=== PATIENT | female | born 1955 | race Caucasian/White ===

== ENCOUNTER 2020-04-12 10:49 | Outpatient (CLI) | payer OTHER, SELFPAY ==
--- NOTE | 2020-04-16 12:20 | SLEEP_ITS ---
Home sleep test. DATE OF STUDY: 04/12/2020 ORDERING PHYSICIAN: Jordon Melendez M.D. REASON FOR THE STUDY: Poor quality sleep with daytime sleepiness. HISTORY: This patient is a 65-year-old female, 5 feet 6 inches tall, weighing 180 pounds for a body mass index of 29 kg/metered square. She has had years of poor quality sleep. She constantly snores and it is constantly loud enough that others complain about it. She frequently awakens from sleep feeling short of breath. She occasionally awakens at night with heartburn and belching. She frequently has trouble sleeping with a cold, frequently wakes at night gasping for breath, has trouble witnessed by others and sweats excessively at night. She occasionally notices her heart pounding or beating irregularly at night. She frequently falls asleep in the day, occasionally involuntarily, never while driving. She does not have sleep during physical effort. She rarely has loss of muscle tone with strong emotion. Occasionally, she has daytime difficulty due to excessive sleepiness. She rarely feels paralyzed on waking or falling asleep. She occasionally has nightmares, rarely remembers her dreams, occasionally has racing thoughts, occasionally feels sad or depressed. She occasionally has anxiety. She rarely has muscular tension. She frequently notices parts of her body jerking and she occasionally kicks at night. She frequently has crawly achy feelings in her legs and frequently has leg pain at night. She occasionally has morning jaw pain. She rarely grinds her teeth at night. She constantly is bothered by pain during the day, frequently awakened by pain at night. She constantly wakes up feeling stiff in the morning with sore achy muscles and pain in her neck and spine. She has dizziness, fatigue, panic, memory problems, tremors, depression, palpitations, headaches, alcohol problems, concentration difficulties, and she takes sedatives. Normal bedtime is around 09:00 p.m. until 02:00 a.m. She wakes up several times during that 5 hours. She tosses and turns. Her sleep is not refreshing. She does not feel rested on waking. PAST MEDICAL HISTORY: Depression, alcoholism, neuropathy, nasal allergies, emphysema, COPD, uses oxygen, swallowing difficulties, anemia, back surgeries, lower extremity swelling. HABITS: Tobacco everyday. Currently, also uses e-cigarettes. Alcohol is 4 or more times a week, 3 to 4 drinks per session. She drinks 24 ounces of vodka daily. She has used amphetamines, benzodiazepines and marijuana. DESCRIPTION OF THE STUDY: On the [place] Sleepiness Scale, her score is 11, elevated. This was conducted as an unattended type 3 portable home sleep test using 4-channel monitoring including respiratory effort channel, snoring channel, heart rate channel, and oxygen desaturation channel. The duration of the study was 10 hours 51 minutes. This study was scored using CMS guidelines. The apnea-hypopnea index is 11. The oxygen desaturation index is 11.1. The average saturation is 87%. Lowest saturation 68%. Baseline saturation 92%. She had 7 apneas, all obstructive. She had 112 hypopneas. She had 4192 snoring events. She desaturated 118 times and spent 69% of the study or 441 minutes below 88% saturation. Heart rate ranged from 40 to 102. The average pulse was 79. IMPRESSION: This study shows evidence of at least mild obstructive sleep apnea syndrome, G47.33. The patient normally reports 5 hours of sleep at night, but she left this on for 10 hours 51 minutes, so the apnea-hypopnea index may be artificially decreased. She has significant desaturation and spent 69% of the study below 88% saturation with an average sat of 87%, so she has baseline hypoxemia. The patient does use oxygen at home and
== END 2020-04-12 10:50 ==
LOC: ANHCSM 09-22 10:49
PROVIDERS: PCP Nurse Practitioner Family; Visit Provider Internal Medicine Critical Care Medicine
DX: G47.33 Obstructive sleep apnea (adult) (pediatric) (principal)
CPT/HCPCS: 95806

== ENCOUNTER 2020-06-11 00:44 | Outpatient (CLI) | payer OTHER, SELFPAY ==
[2020-06-12 13:40] LABS: SARS-CoV-2 RNA PCR Negative
== END 2020-06-11 00:45 | disposition home or self-care (01) ==
LOC: ANHCOVIDDT 00:44
PROVIDERS: Visit Provider Internal Medicine Critical Care Medicine
DX: Z20.828 Contact with and (suspected) exposure to other viral communicable diseases (principal)
CPT/HCPCS: 87635; C9803; U0003

== ENCOUNTER 2020-06-14 07:48 | Outpatient (CLI) | payer OTHER, SELFPAY ==
--- NOTE | 2020-06-18 03:22 | SLEEP_ITS ---
CPAP TITRATION DATE OF STUDY: 06/14/2020 ORDERING PHYSICIAN: Dr. Sharan Barahona. REASON FOR THIS STUDY: Home sleep test on 04/12/2020, showing moderate obstructive sleep apnea syndrome with an apnea-hypopnea index of 11.1. Lowest desaturation to 68% and a baseline desaturation of 92%. HISTORY: This patient is a 65-year-old female, 5 feet 6 inches tall weighing 180 pounds with a body mass index of 29 kg/metered square. On 04/12/2020, she had a portable home sleep test showing an AHI of 11.1 with desaturation to 68%, baseline was low at 92% and she spent 69% of the study below 88% saturation. Her baseline sat throughout the study was 87%. The patient returned for a CPAP titration. She does have a history of constantly snoring, which is loud, awakening from sleep feeling short of breath, awakening at night with heartburn and belching. She has trouble sleeping with a cold and frequently gasps for breath at night. She has difficulty at night witnessed by others and sweats excessively at night. She occasionally notices her heart pounding at night. She is bothered by pain during the day and frequently awakened with pain at night. PAST MEDICAL HISTORY: Depression, alcoholism, neuropathy, nasal allergies, COPD with a prior history of using oxygen, swallowing difficulties, anemia, back surgeries, and lower extremity swelling. HABITS: Daily tobacco. Also uses e-cigarettes. Alcohol, 4 or more times a week, 3-4 drinks per session. She drinks 24 ounces of vodka daily. She has used amphetamines, benzodiazepines, and marijuana. DESCRIPTION OF THE STUDY: On the [place] Sleepiness Scale, her score is 11. This was conducted as an attended multichannel study using the [employer] system with EOG, EEG, submental EMG, EKG, nasal and oral airflow using thermistors and nasal pressure sensors, chest and abdominal belts, body position data and pulse oximetry. This study was scored using CMS guidelines. The duration of this study was 411.2 minutes. Sleep time was 339.2 minutes. Sleep efficiency was 82.5%. Sleep latency was 12.4 minutes. REM latency was delayed 298 minutes. She spent 15% of the study awake after sleep onset 60 minutes. Sleep architecture showed 7.4% stage I sleep, 58.7% stage II sleep, 4.5% stage III sleep, and 14.2% stage REM. She spent 82% of the study supine, the remainder was non-supine. She had 1 dense consolidated REM episode in the last third of the night when the pressure was adequate. The overall apnea-hypopnea index was 4.4. The obstructive index was 3.4, central index 0.7. The patient had in supine REM, 3 central apneas, 1 mixed apnea for an apnea-hypopnea index of 4.2. There was no non-supine REM. The patient had 1 central apnea, 1 mixed apnea, and 19 obstructive hypopneas in supine non-REM, total #21 with an AHI of 4.7. She had no events in non-supine non-REM. The supine index was 4.6. Non-supine index was 0. Lowest desaturation was 76%. The mean saturation during the study was 84.5%. She had 24 desaturations of 4% or greater for an index of 3.5. The REM desaturation index was 4.2. The patient had 365 minutes spent below 88% saturation, 88.8% of the study. AROUSALS: One hundred arousals for an index of 14.6. The patient had 5 hypopneas for an index of 0.7, 19 snores for an index of 2.8, 38 spontaneous arousals for an index of 5.5, and 38 limb movements causing arousal for an index of 5.5. LIMB MOVEMENTS: Two hundred forty-eight isolated limb movements for an index of 43.9. She had 7 periodic limb movements for an index of 1.2. EKG: Sinus rhythm, mean heart rate 78 without arrhythmia. TITRATION: During this titration, CPAP was started at 5 cm and increased to 9 cm. At 9 cm, the patient had 56 minutes of REM, 3 hours 24 minutes o
== END 2020-06-14 07:49 | disposition home or self-care (01) ==
LOC: ANHCSM 07:49
PROVIDERS: Visit Provider Student in an Organized Health Care Education/Training Program
DX: G47.33 Obstructive sleep apnea (adult) (pediatric) (principal)
CPT/HCPCS: 95811

== ENCOUNTER 2020-08-18 10:53 | Emergency (ER) | payer OTHER, SELFPAY ==
--- NOTE | ~2020-08-18 | CT_ITS ---
EXAMINATION: CT brain wo con, CT cervical spine wo con EXAM DATE: 08/18/2020 11:57 (accession [id number]), 08/18/2020 11:56 (accession [id number]) INDICATION: Fall, head injury. TECHNIQUE: Spiral CT of the head was performed without contrast. Axial, coronal and sagittal images were reviewed. Spiral CT of the cervical spine was performed without contrast. Axial images were rev iewed. Coronal and sagittal reformatted images were also reviewed. The dose-length product (DLP) fo r this examination was 605.33 (accession [id number]), 421.72 (accession [id number]) mGy-cm. The exposure was tailored according to patient size, and iterative reconstruction (ASIR) was used as additional dose reduction technique. There is no prior study for comparison. FINDINGS: HEAD CT: There is no acute intraparenchymal hemorrhage. No evidence of intraparenchymal brain mass l esion. No evidence of acute infarction. There is mild periventricular and subcortical hypodensity, n onspecific but probably related to small vessel ischemic disease. There is ventricular prominence o ut of proportion to sulci which is suspected most likely central atrophy rather than hydrocephalus. Normal pressure hydrocephalus cannot be excluded (clinical triad ataxia/gait disturbance, dementia, u rinary incontinence). There is intracranial carotid arteriosclerosis. There is no mass effect or midline shift. There is no obstructive hydrocephalus suspected. There are no extra-axial collections . There are no acute calvarial fractures. The orbits are unremarkable. Soft tissue is unremarkable . The visualized sinuses and mastoid air cells are well aerated. CERVICAL CT: There is no evidence of acute cervical fracture. The odontoid process is intact. Pre- dens space is normal. Prevertebral soft tissue is normal. There are no soft tissue abnormalities id entified. There is no disc space widening or traumatic vertebral body subluxation suspected. Modera te cervical spondylosis. Right apical scarring. A detailed level by level evaluation of spondylosis can be added as addendum if requested. IMPRESSION: 1. No acute intracranial findings or cervical fracture. Reviewed, dictated and finalized at location A. RIFUGAL EXTRACTOR OPERATOR IMPRESSION: 1. No acute intracranial findings or cervical fracture.
--- NOTE | ~2020-08-18 | XR_ITS ---
EXAMINATION: XR shoulder RT min 2V EXAM DATE: 08/18/2020 12:04 INDICATION: Pain After Fall Yesterday, Limited range of motion. TECHNIQUE: Frontal and lateral projections of the right shoulder. Y projection. There is no prior s tudy for comparison. FINDINGS: There is moderate right glenohumeral, mild acromioclavicular primary osteoarthritis. There are no acute fractures or dislocations identified. There is no subcutaneous gas. The soft tissue is unremarkable. There are no radiopaque foreign bodies. IMPRESSION: No acute osseous findings. Reviewed, dictated and finalized at location A. DING TRADES TEACHER IMPRESSION: No acute osseous findings.
--- NOTE | ~2020-08-18 | XR_ITS ---
XR wrist LT min 3V DATE: 08/18/2020 12:05 INDICATION: Generalized left wrist pain since fall yesterday TECHNIQUE: 4 views COMPARISON: None FINDINGS: No recent fracture or dislocation is evident. Ulnar positive variant. There are cystic lares ges at the distal ulna. Radiocarpal and ulnar carpal joint space narrowing. Moderately prominent osteoarthritic change at the first carpometacarpal joint, first metacarpophalang eal and first interphalangeal joints. IMPRESSION: No recent fracture Polyarticular osteoarthritis Reviewed, dictated and finalized at location B. NG COILER
[2020-08-18 11:08] VITALS: BP 95/70; PULSE 96; RESP 20; TEMP 36.6; O2SAT 97
--- NOTE | 2020-08-18 11:45 | PC.NURSE ---
SL inserted. labs drawn. patient ambulated to restroom for urine specimen.
--- NOTE | 2020-08-18 11:50 | PC.NURSE ---
patient to CT via stretcher.
[2020-08-18 11:51] LABS: Basophils Absolute Auto 0.1 K/mm3 (0.0-0.1); Basophils Percent Auto 0.7 % (0.2-1.2); Eosinophils Absolute Auto 0.2 K/mm3 (0-0.3); Eosinophils Percent Auto 1.7 % (0-4.4); Hematocrit 43.9 % (37.0-47.0); Hemoglobin 14.7 g/dL (12.0-15.0); Immature Granulocyte Absolute 0.08 K/mm3 (0.00-0.031); Immature Granulocyte Percent A 0.9 % (0-0.5); Lymphocytes Absolute Auto 1.28 K/mm3 (0.9-3.2); Mean Corpuscular HGB Conc 33.5 g/dl (32-36); Mean Corpuscular Hemoglobin 29.6 pg (26-34); Mean Corpuscular Volume 88.3 fl (80-100); Mean Platelet Volume 8.8 fl (7.4-10.4); Monocytes Absolute Auto 0.9 K/mm3 (0.1-0.6); Monocytes Percent Auto 10.1 % (2.6-8.5); Neutrophils Absolute Auto 6.7 K/mm3 (1.3-6.7); Neutrophils Percent Auto 72.6 % (45.5-73.1); Platelet Count Result 342 k/mm3 (150-375); Red Blood Count 4.97 M/mm3 (4.2-5.4); Red Cell Distribution Width 13.4 % (11.5-14.5); White Blood Count 9.2 K/mm3 (4.5-10.0)
[2020-08-18 11:54] LABS: Add Urine Microscopic? NO; Appearance Urine Clear (Clear); Bilirubin Urine Negative (Negative); Blood Urine Negative (Negative); Color Urine Yellow (Yellow); Glucose Urine UA Negative (Negative); Ketones Urine Negative (Negative); Leukocyte Esterase Ur Negative LEU/UL (Negative); Nitrate Urine Negative (Negative); Protein Urine Negative (Negative); Specific Grav Ur 1.009 (1.001-1.035); Urobilinogen Urine Negative mg/dL (<2.0)
[2020-08-18 11:57] LABS: RBC Urine 0-2 /hpf (0-2); WBC Urine 0-3 /hpf
[2020-08-18 12:04] LABS: Anion Gap 10 mmol/L (8-16); Blood Urea Nitrogen 12 mg/dL (7-17); Carbon Dioxide 32 mmol/L (22-30); Chloride 91 mmol/L (98-107); Estimated CRCL calculation 106 ml/min; Estimated Glomerular Filt Rate > 60; Glucose 103 mg/dL (65-105); Magnesium 1.8 mg/dL (1.6-2.3); Potassium 3.5 mmol/L (3.4-5.0); Sodium 133 mmol/L (137-145)
[2020-08-18] MEDS: HYDROcodone/acetaminophen (*CRX) 7.5-325 MG TABLET 1 TAB PO (12:14)
--- NOTE | 2020-08-18 12:15 | PC.NURSE ---
patient back from CT and xray. pain medication given as ordered. sitting on stretcher. denies other needs. aware of current treatment plan and expected wait time.
--- NOTE | 2020-08-18 12:42 | ED.UPPEXIN ---
HPI - Extremity Injury (Upper) General Chief Complaint: Extremity Injury, Upper Stated Complaint: falls, lt wrist and rt arm injury Time Seen by Provider: 08/18/20 11:07 Source: patient and family Mode of arrival: ambulatory Limitations: no limitations History of Present Illness HPI narrative: Patient is a 65-year-old female who presents from home for evaluation of injuries from 2 falls fell a day ago out of bed injuring the right shoulder left wrist and then notes that yesterday her knee gave out and she also fell at that time once again injuring the right shoulder Related Data Home Medications Medication Instructions Recorded Confirmed L. acidophilus 5 mg-digestive cap PO 02/27/20 enzymes combo no.5 250 mg capsule acetaminophen 300 mg-codeine 30 mg 1 tablet PO Q8H PRN 02/27/20 tablet albuterol sulfate 90 mcg/actuation 1 inhalation INHALATION Q4H 02/27/20 aerosol inhaler amlodipine 5 mg tablet 5 mg PO DAILY 02/27/20 atorvastatin 10 mg tablet 10 mg PO DAILY 02/27/20 baclofen 20 mg tablet 20 mg PO DAILY 02/27/20 bupropion HCl 300 mg 24 hr tablet, 300 mg PO QAM 02/27/20 extended release calcium-magnesium 300 mg-300 mg 1 tablet PO TID 02/27/20 tablet clonazepam 0.5 mg tablet 0.5 mg PO DAILY 02/27/20 fenofibrate nanocrystallized 145 145 mg PO DAILY 02/27/20 mg tablet fluticasone 250 mcg-salmeterol 50 1 inhalation INHALATION BID 02/27/20 mcg/dose blistr powdr for inhalation fluticasone propionate 50 1 spray NASAL BID 02/27/20 mcg/actuation nasal spray,suspension gabapentin 400 mg capsule 400 mg PO TID 02/27/20 glucosamine 750 [id number] 1 tablet PO BID 02/27/20 no1 644 mg-C 30 mg-dima 1 mg tablet hydrochlorothiazide 12.5 mg capsule 12.5 mg PO DAILY 02/27/20 mirtazapine 30 mg tablet 30 mg PO DAILY 02/27/20 montelukast 10 mg tablet 10 mg PO DAILY 02/27/20 naproxen 500 mg tablet 500 mg PO BID 02/27/20 sertraline 100 mg tablet 100 mg PO DAILY 02/27/20 thiamine HCl (vitamin B1) 100 mg 100 mg PO DAILY 02/27/20 tablet Allergies Allergy/AdvReac Type Severity Reaction Status Date / Time No Known Allergies Allergy Verified 08/18/20 11:12 Review of Systems Review of Systems: All systems reviewed & are unremarkable except as noted in HPI and below PMFSH Past Medical History Medical History (Updated 08/18/20 @ 12:49 by Mil Marquez PA-C) Allergic rhinitis Chronic obstructive lung disease Essential hypertension Hyperlipemia Hyponatremia Lumbar radiculopathy Neuropathy Nicotine dependence Osteoarthritis Sleep apnea Spasm of back muscles Surgical History Surgical History H/O lumbosacral spine surgery H/O: hysterectomy History of surgery on arm Family History Family History Mother Chronic obstructive lung disease Father Dementia Sibling Chronic obstructive lung disease Schizophrenia Bipolar disorder Hypertension Sibling Hypertension Social History Social History Smoking status: Current every day smoker Alcohol intake: current Substance use: current Substance use type: marijuana Exam Narrative: Exam Narrative: GENERAL: Well-appearing, well-nourished, and in no acute distress. HEAD: Normocephalic, atraumatic. EYES: PERRLA and EOMI. ENT: Nares clear, no rhinorrhea or epistaxis. Mucous membranes moist. NECK: Supple. No adenopathy or masses. CHEST: Clear to auscultation. No respiratory distress. No wheezes rales or rhonchi HEART: Regular rate and rhythm. No murmur heard. Normal peripheral pulses. EXTREMITIES: Normal range of motion. No edema. Paraspinal cervical tenderness. Right rotator cuff tenderness. Left wrist tenderness SKIN: Warm, dry, no rash. NEURO: No focal deficits. Alert and oriented x3. Neurovascularly intact. Capillary refill less than 2-seco
--- NOTE | 2020-08-18 12:45 | PC.NURSE ---
provider at bedside. all test results reviewed with patient.
== END 2020-08-18 13:09 | disposition home or self-care (01) ==
PROVIDERS: Emergency Medicine Emergency Medical Services; Emergency Provider Emergency Medicine; PCP Nurse Practitioner Family
DX: S69.92XA Unspecified injury of left wrist, hand and finger(s), initial encounter (principal); S49.91XA Unspecified injury of right shoulder and upper arm, initial encounter; S16.1XXA Strain of muscle, fascia and tendon at neck level, initial encounter; J44.9 Chronic obstructive pulmonary disease, unspecified; I10 Essential (primary) hypertension; E78.5 Hyperlipidemia, unspecified; M19.90 Unspecified osteoarthritis, unspecified site; W06.XXXA Fall from bed, initial encounter
CPT/HCPCS: 36415; 70450; 72125; 73030; 73110; 80048; 81003; 83735; 85025; 99284; A9270

== ENCOUNTER 2020-09-28 15:03 | Inpatient (IN) | payer OTHER, SELFPAY ==
--- NOTE | ~2020-09-28 | XR_ITS ---
XR foot LT min 3V DATE: 09/28/2020 16:12 INDICATION: Evaluate for foreign body at lateral foot. Lateral foot injury, laceration, pain TECHNIQUE: 4 views COMPARISON: None FINDINGS: There is a fracture versus bone destruction at the lateral aspect of the head of the proxim al phalanx of the fifth digit. There is soft tissue swelling of the fifth digit. Proximal interphalan geal joint space of the fifth digit is intact. No radiopaque foreign body is detected. No other recent fracture or any dislocation or periosteal reaction or bone destruction elsewhere is n oted. Probable old fracture deformity of the neck of the fourth and fifth metatarsal bones. IMPRESSION: Fracture versus bone destruction at the lateral aspect of the head of the proximal phalan x of the fifth digit. Recommend clinical correlation as to fracture versus osteomyelitis. No radiopaque soft tissue foreign body Fifth digit soft tissue swelling. Reviewed, dictated and finalized at location A. GER LATIN IMPRESSION: Fracture versus bone destruction at the lateral aspect of the head of the proximal phalanx of the fifth digit. Recommend clinical correlation as t o fracture versus osteomyelitis. No radiopaque soft tissue foreign body Fifth digit soft tissue swelling.
--- NOTE | ~2020-09-28 | MR_ITS ---
EXAMINATION: MR foot LT wo/w con DATE: 09/29/2020 16:40 INDICATION: Osteomyelitis at the left fifth toe. TECHNIQUE: Magnetic resonance imaging (MRI) of the left fore/mid foot was performed without and with 17 mL Multihance intravenous contrast. Sequences included axial, sagittal and coronal T1-weighted FSE and T2-weighted FS FSE, axial T1-weighted FS FSE and postcontrast axial and coronal T1-weighted FS F SE. COMPARISON: Left foot radiographs dated 09/28/2020 FINDINGS: There is an abnormal contour to the head of the fifth proximal phalanx with decreased T1 signal and p rominent marrow edema and enhancement consistent with osteomyelitis and likely pathologic fracture in volving the lateral head of the fifth proximal phalanx. Small joint effusion at the fifth proximal in terphalangeal joint concerning for septic arthritis. There is additional more subtle marrow edema and enhancement at the fifth proximal phalanx without evident cortical erosion and this could be either reactive or very early osteomyelitis. Hallux valgus with mild to moderate osteoarthritis at the first metatarsophalangeal joint. There are small geographic regions of decreased T1 and increased T2 signal with enhancement oriented along the medial head of the first metatarsal. The overlying cortex appears intact on both the MR images in aimee or radiographs and there are regions of intervening normal T1 hyperintense marrow and would favor ero sions such as in the setting of gout over additional osteomyelitis. There is however a region of enha ncement in the underlying plantar fat would correlate clinically for evidence of an erosion or sinus tract which is present would elevate concern for osteomyelitis. Old healed fracture deformities with normal marrow signal at the neck of the fourth metatarsal and he ad of the fifth metatarsal. Normal marrow signal throughout the remainder of the visualized forefoot. Mild osteoarthritis at several of the tarsal metatarsal, metatarsophalangeal and interphalangeal dheeraj nts. Mild fatty atrophy of the intrinsic musculature of the foot. Visualized portions of the flexor a nd extensor tendons appear normal. IMPRESSION: 1. Septic arthritis at the fifth proximal interphalangeal joint with osteomyelitis at the head of the fifth proximal phalanx. Mild marrow signal changes at the middle phalanx without evident cortical er osion more equivocal for reactive edema versus early osteomyelitis. 2. Marrow signal changes and enhancement at the head of the first metatarsal with configuration and a bsence of evident cortical osteolysis favoring erosion such as in the setting of gout cystic change r elated to bunion formation over osteomyelitis. There is however enhancement in the underlying plantar fat pad and would correlate for evidence of ulceration and sinus tract formation which would elevate concern for additional osteomyelitis. 2. Old healed fractures at the distal fourth and fifth metatarsals. Reviewed, dictated and finalized at location A. ING ATTENDANT IMPRESSION: 1. Septic arthritis at the fifth proximal interphalangeal joint with osteomyeli tis at the head of the fifth proximal phalanx. Mild marrow signal changes at th e middle phalanx without evident cortical erosion more equivocal for reactive e libby versus early osteomyelitis. 2. Marrow signal changes and enhancement at the head of the first metatarsal wi th configuration and absence of evident cortical osteolysis favoring erosion rodrigues ch as in the setting of gout cystic change related to bunion formation over ost eomyelitis. There is however enhancement in the underlying plantar fat pad and would correlate for evidence of ulceration and sinus tract formation which woul d elevate concern for additional osteomyelitis. 2. Old healed f
[2020-09-28 15:36] VITALS: BP 127/74; PULSE 87; RESP 17; TEMP 36.3; O2SAT 95
[2020-09-28 16:55] LABS: Basophils Absolute Auto 0.1 K/mm3 (0.0-0.1); Basophils Percent Auto 0.5 % (0.2-1.2); Eosinophils Absolute Auto 0.2 K/mm3 (0-0.3); Eosinophils Percent Auto 1.5 % (0-4.4); Hematocrit 36.7 % (37.0-47.0); Hemoglobin 12.3 g/dL (12.0-15.0); Immature Granulocyte Absolute 0.13 K/mm3 (0.00-0.031); Lymphocytes Absolute Auto 1.22 K/mm3 (0.9-3.2); Lymphocytes Percent Auto 9.3 % (18.3-44.2); Mean Corpuscular HGB Conc 33.5 g/dl (32-36); Mean Corpuscular Hemoglobin 29.6 pg (26-34); Mean Corpuscular Volume 88.4 fl (80-100); Mean Platelet Volume 8.4 fl (7.4-10.4); Monocytes Absolute Auto 0.9 K/mm3 (0.1-0.6); Monocytes Percent Auto 6.8 % (2.6-8.5); Neutrophils Absolute Auto 10.6 K/mm3 (1.3-6.7); Neutrophils Percent Auto 80.9 % (45.5-73.1); Platelet Count Result 429 k/mm3 (150-375); Red Blood Count 4.15 M/mm3 (4.2-5.4); Red Cell Distribution Width 13.5 % (11.5-14.5); White Blood Count 13.1 K/mm3 (4.5-10.0)
[2020-09-28 17:06] LABS: Lactic Acid Reflex 1.1 mmol/L (0.7-2.1)
[2020-09-28 17:07] LABS: Alanine Aminotransferase 18 U/L (4-35); Albumin Level 3.7 g/dL (3.5-5.1); Alkaline Phosphatase 124 U/L (38-126); Anion Gap 9 mmol/L (8-16); Aspartate Amino Transferase 33 U/L (14-36); Bilirubin,Total 0.4 mg/dL (0.2-1.3); Blood Urea Nitrogen 8 mg/dL (7-17); Carbon Dioxide 26 mmol/L (22-30); Chloride 93 mmol/L (98-107); Estimated CRCL calculation 118 ml/min; Estimated Glomerular Filt Rate > 60; Glucose 87 mg/dL (65-105); Potassium 4.1 mmol/L (3.4-5.0); Sodium 128 mmol/L (137-145)
[2020-09-28 19:44] VITALS: BP 127/78; PULSE 85; RESP 20; TEMP 36.7; O2SAT 93
[2020-09-28] MEDS: HYDROcodone/acetaminophen (*CRX) 5-325 MG TABLET 1 TAB PO ×2 (19:55→23:48)
[2020-09-28 20:22] LABS: CRP 12.6 mg/dL (<1.0)
[2020-09-28 20:31] LABS: Erythrocyte Sedimentation Rate 55 mm/hr (0-20)
--- NOTE | 2020-09-28 20:36 | ED.GENADULT ---
HPI - General Adult General Chief complaint: Wound/Laceration Stated complaint: CUT YOUR FOOT Time Seen by Provider: 09/28/20 15:49 Source: patient Mode of arrival: ambulatory Limitations: no limitations History of Present Illness HPI narrative: Patient presents with chief complaint of laceration to the volar aspect of her left fifth metatarsal. Patient states she believes she may have stepped on something on the floor but is unsure because she did not see anything. Patient reports a history of neuropathy but denies having diabetes. Patient states that the toe has been painful for at least a week but she is not sure how long and that proceeds the laceration she sustained today. Patient denies any direct trauma to the foot recently. Patient reports 8 months ago she did drop equipment on her toe causing fractures. Patient denies fever, chills, nausea, vomiting, diarrhea or any other symptoms. Patient states she is not sure she is on blood thinners. Related Data Home Medications Medication Instructions Recorded Confirmed L. acidophilus 5 mg-digestive cap PO 02/27/20 enzymes combo no.5 250 mg capsule acetaminophen 300 mg-codeine 30 mg 1 tablet PO Q8H PRN 02/27/20 tablet albuterol sulfate 90 mcg/actuation 1 inhalation INHALATION Q4H 02/27/20 aerosol inhaler amlodipine 5 mg tablet 5 mg PO DAILY 02/27/20 atorvastatin 10 mg tablet 10 mg PO DAILY 02/27/20 baclofen 20 mg tablet 20 mg PO DAILY 02/27/20 bupropion HCl 300 mg 24 hr tablet, 300 mg PO QAM 02/27/20 extended release calcium-magnesium 300 mg-300 mg 1 tablet PO TID 02/27/20 tablet clonazepam 0.5 mg tablet 0.5 mg PO DAILY 02/27/20 fenofibrate nanocrystallized 145 145 mg PO DAILY 02/27/20 mg tablet fluticasone 250 mcg-salmeterol 50 1 inhalation INHALATION BID 02/27/20 mcg/dose blistr powdr for inhalation fluticasone propionate 50 1 spray NASAL BID 02/27/20 mcg/actuation nasal spray,suspension gabapentin 400 mg capsule 400 mg PO TID 02/27/20 glucosamine 750 [id number]-zqwklltkwhi-zru 1 tablet PO BID 02/27/20 no1 644 mg-C 30 mg-dima 1 mg tablet hydrochlorothiazide 12.5 mg capsule 12.5 mg PO DAILY 02/27/20 mirtazapine 30 mg tablet 30 mg PO DAILY 02/27/20 montelukast 10 mg tablet 10 mg PO DAILY 02/27/20 naproxen 500 mg tablet 500 mg PO BID 02/27/20 sertraline 100 mg tablet 100 mg PO DAILY 02/27/20 thiamine HCl (vitamin B1) 100 mg 100 mg PO DAILY 02/27/20 tablet Allergies Allergy/AdvReac Type Severity Reaction Status Date / Time No Known Allergies Allergy Verified 08/18/20 11:12 Review of Systems Review of Systems: Narrative: CONSTITUTIONAL: Denies fever, chills, or sweats. EYES: Denies visual changes, redness, or discharge. ENT: Denies rhinorrhea, congestion, sore throat, or otalgia. CARDIOVASCULAR: Denies chest pain, palpitations, or edema. RESPIRATORY: Denies cough or dyspnea. GASTROINTESTINAL: Denies abdominal pain, nausea, vomiting, or diarrhea. GENITOURINARY: Denies dysuria or hematuria. SKIN: Reports laceration. MUSCULOSKELETAL: Denies back pain, joint pain, or myalgia. NEUROLOGIC: Denies headache, numbness, dizziness, or weakness. PSYCHIATRIC: Denies anxiety or depression. [facility] Past Medical History Medical History (Updated 09/28/20 @ 20:48 by Jessica Mascorro PA-C) Allergic rhinitis Chronic obstructive lung disease Essential hypertension Hyperlipemia Hyponatremia Lumbar radiculopathy Neuropathy Nicotine dependence Osteoarthritis Sleep apnea Spasm of back muscles Surgical History Surgical History H/O lumbosacral spine surgery H/O: hysterectomy History of surgery on arm Family History Family History Mother Chronic obstructive lung disease Father Dementia Sibling Chronic obstructive lung disease Schizophrenia Bipolar disorder Hypertension Sibling Hypertension Social History Social Hist
--- NOTE | 2020-09-28 21:25 | ADMGEN ---
This patient, Dotty Guevara, was admitted to [facility]. Patient/family oriented to hospital policies and general routines including ID bracelet, bed and alarms, visiting hours, pain management, procedures, bathroom and other care routines, personal items, smoking policy, room service/diet, and visiting hours. Information on how to activate the Rapid Response Team has been discussed. Patient/Family are encouraged to report perceived risks to care and to ask questions if they do not understand what they are told or what they should do.
[2020-09-28 21:30] VITALS: BMI 27.8
--- NOTE | 2020-09-28 21:51 | PCRCNOTE ---
Patient declines to wear hospital CPAP unit during stay. RN aware.
[2020-09-28 22:00] VITALS: BP 125/75; PULSE 82; RESP 18; TEMP 36.3; O2SAT 94
--- NOTE | 2020-09-28 22:15 | PM.IMHP ---
H&P: HPI History of Present Illness Date/Time: 09/28/20 22:15 Chief Complaint: Left foot wound. Narrative: Dotty Guevara is a [id number]-female with spinal stenosis, peripheral neuropathy, hypertension, and COPD who presented to the emergency department earlier today from home with complaints of a left foot wound. A couple of weeks ago she noticed her left 5th toe was bleeding and she assumed that she must have stepped on something while walking in her home barefoot although she did not feel it due to neuropathy. It is been a bit sore since that time but not significantly so. The location of the injury is in a region that she cannot actively see and thus she is not sure whether not it was red or swollen. Today ?it popped open? and began to bleed again thus she came in for evaluation. An x-ray of the left 5th toe showed findings of either a fracture or bone destruction at the lateral aspect of the head of the proximal phalanx as well as soft tissue swelling. It is in this setting that she is being admitted. I inquired about any recent injuries in which she may have fractured her toe, and she remembers a time about a month ago when she dropped a heavy, glass pot lid while cooking in the kitchen. She has no active complaints and specifically denies fever, chills, sweats. No history of MRSA. She is not a diabetic. Review of Systems Review of Systems: Narrative: Twelve systems were reviewed with pertinent positives and negatives as per HPI. No sinus congestion, rhinorrhea, otalgia, or odynophagia. No known exposure to those positive for COVID-19. She denies cough and shortness of breath. No chest pain, orthopnea, or PND. She has chronic pain in her back and legs due to neuropathy from spinal stenosis. She denies ever having signs or symptoms of alcohol withdrawal. Except as documented, all other systems were reviewed and are negative. [facility] Past Medical History Medical History (Updated 09/29/20 @ 01:48 by Sisi Kat PA-C) Alcohol abuse, daily use Allergic rhinitis Chronic obstructive lung disease Chronic pain syndrome Essential hypertension Hyperlipemia Lumbar radiculopathy Obstructive sleep apnea Osteoarthritis Peripheral neuropathy Spinal stenosis Surgical History Surgical History (Updated 09/29/20 @ 01:43 by Sisi Kat PA-C) History of hysterectomy History of lumbar surgery X2. History of surgery on arm ORIF left humerus fracture. History of tonsillectomy Family History Family History Mother Chronic obstructive lung disease Father Dementia Sibling Chronic obstructive lung disease Schizophrenia Bipolar disorder Hypertension Sibling Hypertension Social History Social History (Updated 09/29/20 @ 01:44 by Sisi Kat PA-C) Social History: Surrogate decision maker: Jason Guevara, walker. Code status: Full code. Smoking packs per day: 3 Smoking cigarettes per day: 60.0 Years smoked: 15 Smoking pack-years: 45.00 Smoking status: Former smoker Smoking end date: 10/01/09 Additional smoking assessment comments: Occasionally vapes. Alcohol intake: current Drinks per week: 28 Alcohol use details: 3 to 4 glasses of wine a night. Substance use: current Substance use type: marijuana Living arrangements: alone Additional living arrangements comments: Lives in her own home in [place]. Additional occupation/education comments: Unemployed. Gender identity (if verbalized by the patient): Female Spiritual care concerns: No Meds Home Medications and Allergies Home Medications Medication Instructions Recorded Confirmed Type L. acidophilus 5 mg-digestive 1 cap PO DAILY 02/27/20 09/28/20 History enzymes combo no.5 250 mg capsule acetaminophen 300 mg-codeine 30 mg 1 tablet PO Q8H PRN 02/27/20 09/28/20 History tablet albuterol sulfate 90 mcg/actuation 1 inhalation
[2020-09-29] VITALS (7 sets, daily range): BP systolic 124–139; BP diastolic 71–78; PULSE 73–96; RESP 16–18; TEMP 36.1–36.6; O2SAT 91–94
[2020-09-29] MEDS: ALBUTEROL SULFATE (*SP) INHALER 1 PUFF (00:59)
[2020-09-29] MEDS: GABAPENTIN 400 MG CAPSULE PO ×4 (01:33→17:32)
[2020-09-29] MEDS: SODIUM CHLORIDE 0.9% IV 500 ML IV CONT (02:57)
[2020-09-29] MEDS: HYDROcodone/acetaminophen (*CRX) 5-325 MG TABLET 1 TAB PO ×4 (05:32→20:06)
[2020-09-29 05:42] LABS: Hemoglobin 11.5 g/dL (12.0-15.0); Mean Corpuscular HGB Conc 32.9 g/dl (32-36); Mean Corpuscular Hemoglobin 29.2 pg (26-34); Mean Corpuscular Volume 88.8 fl (80-100); Mean Platelet Volume 8.3 fl (7.4-10.4); Platelet Count Result 402 k/mm3 (150-375); Red Blood Count 3.94 M/mm3 (4.2-5.4); Red Cell Distribution Width 13.3 % (11.5-14.5); White Blood Count 10.4 K/mm3 (4.5-10.0)
[2020-09-29 05:56] LABS: Anion Gap 5 mmol/L (8-16); Blood Urea Nitrogen 9 mg/dL (7-17); Calcium 8.7 mg/dL (8.4-10.2); Carbon Dioxide 30 mmol/L (22-30); Chloride 95 mmol/L (98-107); Estimated CRCL calculation 132 ml/min; Estimated Glomerular Filt Rate > 60; Glucose 96 mg/dL (65-105); Magnesium 1.9 mg/dL (1.6-2.3); Sodium 130 mmol/L (137-145)
[2020-09-29] MEDS: amLODIPine BESYLATE 5 MG TABLET PO (08:18)
[2020-09-29] MEDS: FLUTICASONE PROPIONATE 0.05% NA SPR 16 GM BTL (*BKC) 1 SPRAY NASAL ×2 (08:18→17:32)
[2020-09-29] MEDS: MONTELUKAST SODIUM 10 MG TABLET PO (08:19)
[2020-09-29] MEDS: SERTRALINE HCL 50 MG TABLET 100 MG PO (08:19)
[2020-09-29] MEDS: THIAMINE HCL 100 MG TABLET PO (08:19)
[2020-09-29] MEDS: FENOFIBRATE NANOCRYSTALLIZED 145 MG TABLET PO (08:19)
[2020-09-29] MEDS: BACLOFEN 10 MG TABLET 20 MG PO ×2 (08:19→22:06)
[2020-09-29] MEDS: ATORVASTATIN 10 MG TABLET PO (08:19)
[2020-09-29] MEDS: buPROPion HCL XL (24 HR) 150 MG TABCR 300 MG PO (08:19)
[2020-09-29] MEDS: MIRTAZAPINE 30 MG TABLET PO (08:19)
[2020-09-29] MEDS: clonazePAM (*CRX) 0.5 MG TABLET PO (08:20)
[2020-09-29] MEDS: FLUTICASONE/SALMETEROL 115-21 MCG INHALER 1 PUFF 2 PUFF INHALATION (09:30)
[2020-09-29] MEDS: CALCIUM CARBONATE (OSCAL) 250 MG TABLET PO ×2 (12:05→17:32)
[2020-09-29] MEDS: MAGNESIUM OXIDE 400 MG TABLET PO ×2 (12:05→17:32)
--- NOTE | 2020-09-29 13:43 | PM.CNOR ---
Assessment and Plan Assessment and plan (1) Osteomyelitis: Qualifiers: Laterality: left Osteomyelitis location: foot Osteomyelitis type: other acute Qualified Code(s): M86.172 - Other acute osteomyelitis, left ankle and foot Code(s): M86.9 - Osteomyelitis, unspecified Status: Acute Assessment and Plan: New patient evaluation for chief complaint left small toe ulceration. History, physical exam and radiographs reviewed with the patient. Patient unsure of when problem began. Noticed drainage and bleeding several days ago. Worse yesterday. Radiographs show destructive changes of the small toe proximal interphalangeal joint consistent with osteomyelitis. Discussed the condition, nature, etiology and course of natural history with the patient. Treatment options including surgical and nonoperative treatment were reviewed. Risks and benefits of each as well as alternatives reviewed. The patient's questions were answered. Conservative treatment elevation. Patient has good vascularity. Started on IV antibiotics. White count has responded. Discussed with surgery most likely will be amputation of the toe. Patient would like to preserve the toe if possible treat with antibiotics. Recommend MRI of the left forefoot with small toe to assist with decision on surgery versus antibiotics. (2) Neuropathy, peripheral, idiopathic: Code(s): G60.9 - Hereditary and idiopathic neuropathy, unspecified Status: Acute History of Present Illness HPI Consult date: 09/29/20 Requesting physician: Eric Woodruff DO Chief complaint: osteomyelitis with cellulitis Narrative: 65-year-old woman presented to emergency room yesterday with bleeding and drainage from the left foot small toe. Patient unaware of injury to the toe. Noted bleeding several days ago. Had been using a dressing with the noted increased swelling and drainage yesterday. Family encouraged her to present to the emergency room. She denies any prior problems with her toes including ulceration, infection or surgery. She does have neuropathy. Denies fevers, chills, changes any eating, no nausea or vomiting. Very little pain secondary to her neuropathy. Review of Systems Constitutional: Constitutional: Denies fever(s) Eyes: Eyes: Denies blurry vision ENT: Reports Normal hearing present Cardiovascular: Cardiovascular: Denies chest pain, Denies dyspnea and Reports other (hypertension) Respiratory: Respiratory: Denies dyspnea and Denies wheezing Gastrointestinal: Gastrointestinal: Denies abdominal pain Genitourinary: Genitourinary: Denies urinary urgency Musculoskeletal: Musculoskeletal: Reports as per HPI, Reports arthralgias (hands), Reports numbness and Reports other (lumbar arthritis/surgery) Integumentary/Breasts: Skin/Breast: Denies changing lesions and Denies sores Neurologic: Reports Normal hearing present, Denies behavioral changes, Denies confusion, Reports numbness ( Both feet) and Denies convulsions Psychiatric: Psychiatric: Denies behavioral changes, Denies confusion and Denies hallucinations Endocrine: Endocrine: Denies heat intolerance Hematologic/Lymphatic: Hematologic/Lymphatic: Denies easy bleeding Allergic/Immunologic: Allergic/Immunologic: Denies wheezing PMFSH Past Medical History Medical History Alcohol abuse, daily use Allergic rhinitis Chronic obstructive lung disease Chronic pain syndrome Essential hypertension Hyperlipemia Lumbar radiculopathy Obstructive sleep apnea Osteoarthritis Peripheral neuropathy Spinal stenosis Surgical History Surgical History History of hysterectomy History of lumbar surgery X2. History of surgery on arm ORIF left humerus fracture. History of tonsillectomy Family History Family History Mother C
--- NOTE | 2020-09-29 14:50 | PM.IMPN ---
Progress Note: A&P Assessment and Plan (1) Cellulitis of fifth toe, left: Code(s): L03.032 - Cellulitis of left toe Status: Acute Assessment and Plan: 09/29/20 14:50 Patient is 65-year-old female presented with a complaint of left 5th toe possible laceration and or trauma as patient is a poor historian states she is not sure exactly what happened but believes this she dropped heavy pot cover on her toe couple of weeks ago however pain was getting worse last couple of days and presented emergency department further evaluation x-ray of the toe showed fracture of the toe possibly destruction of the bone concerned for cellulitis patient was started on vancomycin imipenem, patient was seen by surgery team discussed with the patient conservative management versus surgery, patient has opted for conservative management with antibiotics, surgeon has ordered MRI of the toe to further evaluate and further recommendation to follow. Patient also drinks 3-4 drinks on daily basis being monitor with CIWA protocol remains clinically stable (2) Abnormal x-ray of extremity: Code(s): R93.6 - Abnormal findings on diagnostic imaging of limbs Status: Acute Assessment and Plan: Plan is above (3) Hyponatremia: Code(s): E87.1 - Hypo-osmolality and hyponatremia Status: Acute Assessment and Plan: Most likely secondary to alcohol abuse as well as patient is on SSRI will continue to monitor and further recommendation to follow (4) Obstructive sleep apnea: Code(s): G47.33 - Obstructive sleep apnea (adult) (pediatric) Status: Inactive Assessment and Plan: Will continue CPAP (5) Chronic obstructive lung disease: Code(s): J44.9 - Chronic obstructive pulmonary disease, unspecified Status: Acute Assessment and Plan: Clinically stable will continue updraft (6) Alcohol abuse, daily use: Code(s): F10.10 - Alcohol abuse, uncomplicated Status: Acute Assessment and Plan: Patient is clinically stable being monitor with CIWA protocol and low-dose of Librium (7) Chronic pain syndrome: Code(s): G89.4 - Chronic pain syndrome Status: Acute Assessment and Plan: Will continue home regimen Additional Plan She has been started on broad-spectrum antibiotics including vancomycin and imipenem for cellulitis of the right 5th toe which appears to be stemming from a laceration that occurred within the last week or so on an unknown object. X-ray that toe shows findings of fracture verses bone destruction thus will obtain an MRI for further evaluation. I have encouraged her to elevate the affected extremity. Dr. Ortega was consulted by the ED provider and his input is appreciated. Regarding her hyponatremia, her mucous membranes are a bit tachy however she reports normal oral intake. This may be stemming from her hydrochlorothiazide in addition to daily alcohol consumption of reportedly 3 to 4 glasses a night. She will receive 0.5 L of normal saline overnight with repeat labs in a.m.. Hold hydrochlorothiazide for now. No evidence of COPD exacerbation. She denies ever having signs or symptoms of alcohol withdrawal however I will initiate CIWA protocol as well as thiamine supplementation. Her home medications will be reviewed and resumed as appropriate. Subjective Date/time seen: 09/29/20 14:50 Patient is 65-year-old female presented with a complaint of left 5th toe possible laceration and or trauma as patient is a poor historian states she is not sure exactly what happened but believes this she dropped heavy pot cover on her toe couple of weeks ago however pain was getting worse last couple of days and presented emergency department further evaluation x-ray of the toe showed fracture of the toe possibly destruction of the bone concerned for cellulitis patient was started on vancomycin imipenem, patient was seen by surgery team discussed with the patient conservative
[2020-09-29] MEDS: clonazePAM (*CRX) 0.5 MG TABLET 1 MG PO (15:20)
[2020-09-29] MEDS: MENTHOL 10% / METHYL SALICYLATE 15% 57 GM TUBE 1 APPLIC TOPICAL (15:21)
[2020-09-29] MEDS: SOLOSITE WOUND GEL 85 GM TUBE 1 APPLIC TOPICAL (17:33)
[2020-09-29] MEDS: NAPROXEN 500 MG TABLET PO (19:05)
[2020-09-29] MEDS: MELOXICAM 7.5 MG TABLET PO (21:24)
[2020-09-29] MEDS: MIRTAZAPINE 15 MG TABLET 45 MG PO (21:26)
[2020-09-30] VITALS (15 sets, daily range): BP systolic 120–138; BP diastolic 68–89; PULSE 71–89; RESP 11–20; TEMP 36.4–36.8; O2SAT 93–100
[2020-09-30] MEDS: BACLOFEN 10 MG TABLET 20 MG PO ×3 (06:13→22:36)
[2020-09-30] MEDS: HYDROcodone/acetaminophen (*CRX) 5-325 MG TABLET 1 TAB PO ×4 (06:19→22:36)
[2020-09-30 06:22] LABS: Hematocrit 37.2 % (37.0-47.0); Hemoglobin 12.1 g/dL (12.0-15.0); Mean Corpuscular HGB Conc 32.5 g/dl (32-36); Mean Corpuscular Hemoglobin 28.4 pg (26-34); Mean Corpuscular Volume 87.3 fl (80-100); Mean Platelet Volume 8.4 fl (7.4-10.4); Platelet Count Result 453 k/mm3 (150-375); Red Blood Count 4.26 M/mm3 (4.2-5.4); Red Cell Distribution Width 13.7 % (11.5-14.5); White Blood Count 8.9 K/mm3 (4.5-10.0)
[2020-09-30 06:38] LABS: Anion Gap 8 mmol/L (8-16); Blood Urea Nitrogen 8 mg/dL (7-17); Calcium 9.2 mg/dL (8.4-10.2); Carbon Dioxide 29 mmol/L (22-30); Chloride 94 mmol/L (98-107); Estimated CRCL calculation 132 ml/min; Estimated Glomerular Filt Rate > 60; Glucose 108 mg/dL (65-105); Magnesium 1.9 mg/dL (1.6-2.3); Potassium 4.6 mmol/L (3.4-5.0); Sodium 131 mmol/L (137-145)
--- NOTE | 2020-09-30 07:26 | WPDHPUPDATE1 ---
History and Physical Update Update Date/Time: 09/30/20 07:26 History and Physical has been reviewed, including an updated exam of the patient. There are NO changes in the patient's condition. MRI reviewed with the patient showing osteomyelitis of the left small toe proximal phalanx. We discussed treatment options including surgical and non operative treatment. With surgery recommendation would be amputation of the toe. Patient has declined that. Secondary option would be excision of the proximal phalanx, patient has declined that. We did discuss debridement of the toe and the proximal interphalangeal joint with salvage of the toe in closure of the wound with course of intravenous antibiotics postoperatively. Non operative treatment would include long-term intravenous antibiotics with observation. Risks, benefits, and alternatives have been discussed and questions answered. Patient has consented to debridement of the toe with closure with postoperative intravenous antibiotics as indicated. We discussed the potential for spread of infection or worsening infection and further involvement of the foot or leg. We discussed possible need for surgery in the future for increased infection. Patient agrees to proceed with procedure for debridement of the toe and continued intravenous antibiotics.
[2020-09-30 07:30] LABS: Vancomycin Trough 10.4 ug/mL (10.0-20.0)
--- NOTE | 2020-09-30 10:03 | WPDANESEPPF ---
Anes - Initial Pre Proc Eval Procedure: Operation Date: 09/30/20 12:00 Proposed Procedures p LEFT SMALL TOE DEBRIDEMENT - Ian Ortega MD Date/Time: 09/30/20 10:03 Surgeon: Suleman Woodruff DO Pre Op Diagnosis: osteomyelitis with cellulitis Patient Data Age: 65 Gender: F Height: 1.73 m Weight: 83.2 kg Last Vital Signs Temp 36.4 C L 09/30/20 06:00 Pulse 79 09/30/20 08:00 Resp 19 09/30/20 08:00 BP 128/80 09/30/20 06:00 Pulse Ox 94 09/30/20 08:00 Allergies Allergy/AdvReac Type Severity Reaction Status Date / Time No Known Allergies Allergy Verified 09/30/20 10:21 Home Medications Medication Instructions Recorded Confirmed Type L. acidophilus 5 mg-digestive 1 cap PO DAILY 02/27/20 09/28/20 History enzymes combo no.5 250 mg capsule acetaminophen 300 mg-codeine 30 mg 1 tablet PO Q8H PRN 02/27/20 09/28/20 History tablet albuterol sulfate 90 mcg/actuation 1 inhalation INHALATION Q4H 02/27/20 09/28/20 History aerosol inhaler amlodipine 5 mg tablet 5 mg PO DAILY 02/27/20 09/28/20 History atorvastatin 10 mg tablet 10 mg PO DAILY 02/27/20 09/28/20 History baclofen 20 mg tablet 20 mg PO Q8H PRN 02/27/20 09/29/20 History bupropion HCl 300 mg 24 hr tablet, 300 mg PO QAM 02/27/20 09/28/20 History extended release calcium-magnesium 300 mg-300 mg 1 tablet PO TID 02/27/20 09/28/20 History tablet clonazepam 0.5 mg tablet 1 mg PO BID PRN 02/27/20 09/29/20 History fenofibrate nanocrystallized 145 145 mg PO DAILY 02/27/20 09/28/20 History mg tablet fluticasone 250 mcg-salmeterol 50 1 inhalation INHALATION BID 02/27/20 09/28/20 History mcg/dose blistr powdr for inhalation fluticasone propionate 50 1 spray NASAL BID 02/27/20 09/28/20 History mcg/actuation nasal spray,suspension gabapentin 400 mg capsule 400 mg PO TID 02/27/20 09/28/20 History glucosamine 750 [id number] 1 tablet PO BID 02/27/20 09/28/20 History no1 644 mg-C 30 mg-dima 1 mg tablet hydrochlorothiazide 12.5 mg capsule 12.5 mg PO DAILY 02/27/20 09/28/20 History montelukast 10 mg tablet 10 mg PO DAILY 02/27/20 09/28/20 History naproxen 500 mg tablet 500 mg PO BID 02/27/20 09/28/20 History sertraline 100 mg tablet 100 mg PO DAILY 02/27/20 09/28/20 History thiamine HCl (vitamin B1) 100 mg 100 mg PO DAILY 02/27/20 09/28/20 History tablet meloxicam 7.5 mg PO HS 09/29/20 09/29/20 History mirtazapine 45 mg PO HS 09/29/20 09/29/20 History Laboratory Tests 09/30/20 09/30/20 09/30/20 06:12 06:12 06:12 WBC 8.9 K/mm3 K/mm3 (4.5-10.0) RBC 4.26 M/mm3 M/mm3 (4.2-5.4) Hgb 12.1 g/dL g/dL (12.0-15.0) Hct 37.2 % % (37.0-47.0) MCV 87.3 fl fl (80-100) MCH 28.4 pg pg (26-34) MCHC 32.5 g/dl g/dl (32-36) RDW 13.7 % % (11.5-14.5) Plt Count 453 k/mm3 H k/mm3 (150-375) MPV 8.4 fl fl (7.4-10.4) Sodium 131 mmol/L L mmol/L (137-145) Potassium 4.6 mmol/L mmol/L (3.4-5.0) Chloride 94 mmol/L L mmol/L (98-107) Carbon Dioxide 29 mmol/L mmol/L (22-30) Anion Gap 8 mmol/L mmol/L (8-16) BUN 8 mg/dL mg/dL (7-17) Creatinine 0.40 mg/dL L mg/dL (0.7-1.0) Estim Creat Clear Calc 132 ml/min ml/min Estimated GFR > 60 (59 - ) Glucose 108 mg/dL H mg/dL (65-105) Calcium 9.2 mg/dL mg/dL (8.4-10.2) Magnesium 1.9 mg/dL mg/dL (1.6-2.3) Vancomycin Trough 10.4 ug/mL ug/mL (10.0-20.0) Patient hx anesthesia problems: none Family hx anesthesia problems: none PMFSH Past Medical History Medical History (Updated 09/29/20 @ 14:06 by Ian Ortega MD) Alcohol abuse, daily use Allergic rhinitis Chronic obstructive lung disease Chronic pain syndrome Essential hypertension Hyperlipemia Lumbar radiculopathy Neuropathy, peripheral, idiopathic Obstructive sl
[2020-09-30] MEDS: LACTATED RINGERS 1,000 ML 30 ML IV CONT (10:19)
--- NOTE | 2020-09-30 11:29 | WPDHPUPDATE1 ---
History and Physical Update Update Date/Time: 09/30/20 11:29 History and Physical has been reviewed, including an updated exam of the patient. There are NO changes in the patient's condition. Further discussion regarding surgical options for treatment of left foot small toe osteomyelitis. Patient has now decided that if the infection involves enough of the toe that salvage is unlikely she would like to proceed with amputation of the small toe. Discussed debridement of the toe with evaluation at the time of surgery and if the extent of the infection and debridement does not leave a viable salvageable toe we will proceed with amputation. Risks, benefits, and alternatives have been discussed and questions answered. Patient agrees to proceed with procedure with plan for debridement of left small toe possible amputation.
[2020-09-30] MEDS: BUPIVACAINE HCL 0.5% PF 30 ML VIAL INFILTRATE (12:03)
--- NOTE | 2020-09-30 13:01 | PM.PROC ---
Procedure Note - Detailed Date of procedure: 09/30/20 Pre-op diagnosis: osteomyelitis with cellulitis Post-op diagnosis: same Procedure performed: Left foot small toe excision of osteomyelitis Description of procedure: Indications: Patient is a 65-year-old woman with peripheral neuropathy who was admitted to the hospital with left small toe infection and plantar ulceration/laceration. Patient has peripheral neuropathy. She is not sure exactly cause of her wound. She presented when they noticed drainage. She did with started on intravenous antibiotics and has shown improvement in terms of white count. An MRI done yesterday shows osteomyelitis of the distal portion of the proximal phalanx and septic arthritis of the PIP joint. She presents now for operative treatment for debridement versus amputation depending on operative findings. What was done: Patient identified in the preoperative holding. Informed consent given. Operative extremity marked. Patient received intravenous antibiotics. Patient brought to the operating room where underwent general anesthetic by anesthesia team. Positioned supine on operating room table. Time-out performed confirming the patient, site of the surgery and the plan. Left foot prepped draped usual sterile surgical fashion using a Betadine prep solution. There was a 3 cm transverse laceration on the plantar aspect of the left foot small toe at the plantar flexion crease. This communicated directly with the plantar aspect of the proximal interphalangeal joint which had mild purulence. There was destruction of the articular surface of the distal portion of the proximal phalanx. Rongeur was used to remove the osteomyelitis and the portion of the proximal phalanx which was infected. This was passed off as specimen. The articular surface of the middle phalanx was removed with a rongeur as well. Soft tissue was debrided with the rongeur and 15 blade knife. Wound was thoroughly irrigated with antibiotic solution. The tourniquet was released and good capillary refill was noted in the toe. There did not appear to be any other signs of infection. Was felt that there was a very good chance at salvage of the toe and so amputation was not indicated. Closure of the wound was then performed with 2 Vicryl interrupted suture for the soft tissue and 3 O nylon interrupted suture for the skin repair. Sterile dressing applied. The patient was then woken from anesthesia, extubated and taken to the recovery room in stable condition. All sponge, needle, instrument counts were correct at the end of the case. Implants: none Anesthesia: GLMA Surgeon: Ian Ortega MD Small Arms Repairer: 1st information technology assistant Estimated blood loss (mL): 5 Tourniquet time (min): 30 Drains: No Packing: No Pathology: yes ( distal portion of the proximal phalanx left small toe) Complications: None Condition: stable Disposition: PACU Findings: septic arthritis of the left small toe proximal interphalangeal joint with changes consistent with infection of the distal most portion of the proximal phalanx. Minimal involvement of the surrounding soft tissue. 3 cm laceration on the plantar aspect of the small toe.
[2020-09-30] MEDS: amLODIPine BESYLATE 5 MG TABLET PO (14:43)
[2020-09-30] MEDS: CALCIUM CARBONATE (OSCAL) 250 MG TABLET PO ×2 (14:44→17:56)
[2020-09-30] MEDS: ATORVASTATIN 10 MG TABLET PO (14:44)
[2020-09-30] MEDS: SERTRALINE HCL 50 MG TABLET 100 MG PO (14:44)
[2020-09-30] MEDS: ACIDOPHILUS/BULGARICUS CHEWABLE TABLET 1 TABLET BY MOUTH (14:44)
[2020-09-30] MEDS: MAGNESIUM OXIDE 400 MG TABLET PO ×2 (14:44→17:56)
[2020-09-30] MEDS: GABAPENTIN 400 MG CAPSULE PO ×2 (14:44→17:56)
[2020-09-30] MEDS: FENOFIBRATE NANOCRYSTALLIZED 145 MG TABLET PO (14:45)
[2020-09-30] MEDS: buPROPion HCL XL (24 HR) 150 MG TABCR 300 MG PO (14:45)
[2020-09-30] MEDS: THIAMINE HCL 100 MG TABLET PO (14:45)
[2020-09-30] MEDS: MONTELUKAST SODIUM 10 MG TABLET PO (14:45)
[2020-09-30] MEDS: clonazePAM (*CRX) 0.5 MG TABLET 1 MG PO (14:49)
--- NOTE | 2020-09-30 15:37 | PM.IMPN ---
Progress Note: A&P Assessment and Plan (1) Cellulitis of fifth toe, left: Code(s): L03.032 - Cellulitis of left toe Status: Acute Assessment and Plan: 09/30/20 15:37 Patient is 65-year-old female presented with a complaint of left 5th toe possible laceration and or trauma as patient is a poor historian states she is not sure exactly what happened but believes this she dropped heavy pot cover on her toe couple of weeks ago however pain was getting worse last couple of days and presented emergency department further evaluation x-ray of the toe showed fracture of the toe possibly destruction of the bone concerned for cellulitis patient was started on vancomycin imipenem, patient was seen by surgery team discussed with the patient conservative management versus surgery, patient had opted for conservative management with antibiotics, surgeon has ordered MRI of the toe to further evaluate, MRI of the toe showed osteomyelitis patient was taken to OR today and infection was removed, patient states feeling better, denies any fever or chills Patient also drinks 3-4 drinks on daily basis being monitor with CIWA protocol remains clinically stable. (2) Abnormal x-ray of extremity: Code(s): R93.6 - Abnormal findings on diagnostic imaging of limbs Status: Acute Assessment and Plan: Plan is above (3) Hyponatremia: Code(s): E87.1 - Hypo-osmolality and hyponatremia Status: Acute Assessment and Plan: Most likely secondary to alcohol abuse as well as patient is on SSRI will continue to monitor and further recommendation to follow (4) Obstructive sleep apnea: Code(s): G47.33 - Obstructive sleep apnea (adult) (pediatric) Status: Inactive Assessment and Plan: Will continue CPAP (5) Chronic obstructive lung disease: Code(s): J44.9 - Chronic obstructive pulmonary disease, unspecified Status: Acute Assessment and Plan: Clinically stable will continue updraft (6) Alcohol abuse, daily use: Code(s): F10.10 - Alcohol abuse, uncomplicated Status: Acute Assessment and Plan: Patient is clinically stable being monitor with CIWA protocol and low-dose of Librium (7) Chronic pain syndrome: Code(s): G89.4 - Chronic pain syndrome Status: Acute Assessment and Plan: Will continue home regimen Subjective Date/time seen: 09/30/20 15:37 Patient is 65-year-old female presented with a complaint of left 5th toe possible laceration and or trauma as patient is a poor historian states she is not sure exactly what happened but believes this she dropped heavy pot cover on her toe couple of weeks ago however pain was getting worse last couple of days and presented emergency department further evaluation x-ray of the toe showed fracture of the toe possibly destruction of the bone concerned for cellulitis patient was started on vancomycin imipenem, patient was seen by surgery team discussed with the patient conservative management versus surgery, patient had opted for conservative management with antibiotics, surgeon has ordered MRI of the toe to further evaluate, MRI of the toe showed osteomyelitis patient was taken to OR today and infection was removed, patient states feeling better, denies any fever or chills Patient also drinks 3-4 drinks on daily basis being monitor with CIWA protocol remains clinically stable Review of Systems Review of Systems: All systems reviewed & are unremarkable except as noted in HPI and below Exam Narrative: Exam Narrative: Patient is comfortable, NAD HEENT: eyes are clear and none icteric LUNGS:CTA HEART: RR S1S2 ABD: BS+, Soft and nontender MS: Left foot wound dressing Lower extremities: no edema SKIN: nonjaundiced Neuro: grossly intact. Objective Data Vital Signs Vital Signs: Vital Signs - 24 hr 09/29/20 16:00 09/29/20 20:00 09/29/20 22:00 Temperature 97.8 F Pulse Rate 76 75 Pulse Rate [Bilateral Radia
[2020-09-30] MEDS: FLUTICASONE PROPIONATE 0.05% NA SPR 16 GM BTL (*BKC) 1 SPRAY NASAL (17:56)
[2020-09-30] MEDS: NAPROXEN 500 MG TABLET PO (17:56)
[2020-09-30] MEDS: DOCUSATE SODIUM 100 MG CAPSULE PO (17:56)
[2020-09-30] MEDS: MELOXICAM 7.5 MG TABLET PO (20:19)
[2020-09-30] MEDS: MIRTAZAPINE 15 MG TABLET 45 MG PO (20:19)
[2020-10-01 03:55] VITALS: BP 138/88; PULSE 78; RESP 20; TEMP 36.2; O2SAT 97
[2020-10-01] MEDS: BACLOFEN 10 MG TABLET 20 MG PO ×3 (06:06→21:08)
[2020-10-01] MEDS: HYDROcodone/acetaminophen (*CRX) 5-325 MG TABLET 1 TAB PO ×4 (06:10→21:13)
[2020-10-01 06:22] LABS: Hematocrit 34.6 % (37.0-47.0); Hemoglobin 11.2 g/dL (12.0-15.0); Mean Corpuscular HGB Conc 32.4 g/dl (32-36); Mean Corpuscular Hemoglobin 29.2 pg (26-34); Mean Corpuscular Volume 90.3 fl (80-100); Mean Platelet Volume 8.5 fl (7.4-10.4); Platelet Count Result 429 k/mm3 (150-375); Red Blood Count 3.83 M/mm3 (4.2-5.4); Red Cell Distribution Width 13.8 % (11.5-14.5); White Blood Count 7.9 K/mm3 (4.5-10.0)
[2020-10-01 06:50] LABS: Anion Gap 3 mmol/L (8-16); Blood Urea Nitrogen 10 mg/dL (7-17); Calcium 8.8 mg/dL (8.4-10.2); Carbon Dioxide 34 mmol/L (22-30); Chloride 96 mmol/L (98-107); Estimated CRCL calculation 109 ml/min; Estimated Glomerular Filt Rate > 60; Glucose 106 mg/dL (65-105); Magnesium 2.1 mg/dL (1.6-2.3); Potassium 3.7 mmol/L (3.4-5.0); Sodium 133 mmol/L (137-145)
[2020-10-01 07:54] VITALS: BP 131/83; PULSE 78; RESP 18; TEMP 36.6; O2SAT 93
[2020-10-01 08:00] VITALS: PULSE 78; RESP 18; O2SAT 93
[2020-10-01] MEDS: FLUTICASONE/SALMETEROL 115-21 MCG INHALER 1 PUFF 2 PUFF INHALATION (08:04)
[2020-10-01] MEDS: FLUTICASONE PROPIONATE 0.05% NA SPR 16 GM BTL (*BKC) 1 SPRAY NASAL ×2 (08:24→16:17)
[2020-10-01] MEDS: THIAMINE HCL 100 MG TABLET PO (08:25)
[2020-10-01] MEDS: MAGNESIUM OXIDE 400 MG TABLET PO ×3 (08:25→16:17)
[2020-10-01] MEDS: NAPROXEN 500 MG TABLET PO ×2 (08:26→16:17)
[2020-10-01] MEDS: buPROPion HCL XL (24 HR) 150 MG TABCR 300 MG PO (08:26)
[2020-10-01] MEDS: ATORVASTATIN 10 MG TABLET PO (08:26)
[2020-10-01] MEDS: hydroCHLOROthiazide 12.5 MG CAPSULE PO (08:26)
[2020-10-01] MEDS: ACIDOPHILUS/BULGARICUS CHEWABLE TABLET 1 TABLET BY MOUTH (08:26)
[2020-10-01] MEDS: MONTELUKAST SODIUM 10 MG TABLET PO (08:26)
[2020-10-01] MEDS: DOCUSATE SODIUM 100 MG CAPSULE PO ×2 (08:26→16:17)
[2020-10-01] MEDS: amLODIPine BESYLATE 5 MG TABLET PO (08:26)
[2020-10-01] MEDS: SERTRALINE HCL 50 MG TABLET 100 MG PO (08:27)
[2020-10-01] MEDS: FENOFIBRATE NANOCRYSTALLIZED 145 MG TABLET PO (08:27)
[2020-10-01] MEDS: CALCIUM CARBONATE (OSCAL) 250 MG TABLET PO ×3 (08:27→16:17)
[2020-10-01] MEDS: GABAPENTIN 400 MG CAPSULE PO ×3 (08:27→16:17)
[2020-10-01] MEDS: POTASSIUM CHLORIDE 20 MEQ TABLET 40 MEQ PO (09:28)
[2020-10-01 11:54] VITALS: BP 118/76; PULSE 83; RESP 18; TEMP 36.1; O2SAT 98
--- NOTE | 2020-10-01 13:46 | PM.IMPN ---
Progress Note: A&P Assessment and Plan (1) Cellulitis of fifth toe, left: Code(s): L03.032 - Cellulitis of left toe Status: Acute Assessment and Plan: 10/01/20 13:46 Patient is 65-year-old female presented with a complaint of left 5th toe possible laceration and or trauma as patient is a poor historian states she is not sure exactly what happened but believes this she dropped heavy pot cover on her toe couple of weeks ago however pain was getting worse last couple of days and presented emergency department further evaluation x-ray of the toe showed fracture of the toe possibly destruction of the bone concerned for cellulitis patient was started on vancomycin imipenem, on 09/29 patient was seen by surgery team discussed with the patient conservative management versus surgery, patient had opted for conservative management with antibiotics, surgeon has ordered MRI of the toe to further evaluate, on 09/30 MRI of the toe showed osteomyelitis patient was taken to OR on 09/30 and infection was removed, today 10/01 patient states feeling better, denies any fever or chills, wound cultures are pending. Patient also drinks 3-4 drinks on daily basis being monitor with CIWA protocol remains clinically stable. (2) Abnormal x-ray of extremity: Code(s): R93.6 - Abnormal findings on diagnostic imaging of limbs Status: Acute Assessment and Plan: Plan is above (3) Hyponatremia: Code(s): E87.1 - Hypo-osmolality and hyponatremia Status: Acute Assessment and Plan: Most likely secondary to alcohol abuse as well as patient is on SSRI will continue to monitor and further recommendation to follow (4) Obstructive sleep apnea: Code(s): G47.33 - Obstructive sleep apnea (adult) (pediatric) Status: Inactive Assessment and Plan: Will continue CPAP (5) Chronic obstructive lung disease: Code(s): J44.9 - Chronic obstructive pulmonary disease, unspecified Status: Acute Assessment and Plan: Clinically stable will continue updraft (6) Alcohol abuse, daily use: Code(s): F10.10 - Alcohol abuse, uncomplicated Status: Acute Assessment and Plan: Patient is clinically stable being monitor with CIWA protocol and low-dose of Librium (7) Chronic pain syndrome: Code(s): G89.4 - Chronic pain syndrome Status: Acute Assessment and Plan: Will continue home regimen Subjective Date/time seen: 10/01/20 13:46 Patient is 65-year-old female presented with a complaint of left 5th toe possible laceration and or trauma as patient is a poor historian states she is not sure exactly what happened but believes this she dropped heavy pot cover on her toe couple of weeks ago however pain was getting worse last couple of days and presented emergency department further evaluation x-ray of the toe showed fracture of the toe possibly destruction of the bone concerned for cellulitis patient was started on vancomycin imipenem, on 09/29 patient was seen by surgery team discussed with the patient conservative management versus surgery, patient had opted for conservative management with antibiotics, surgeon has ordered MRI of the toe to further evaluate, on 09/30 MRI of the toe showed osteomyelitis patient was taken to OR on 09/30 and infection was removed, today 10/01 patient states feeling better, denies any fever or chills, wound cultures are pending. Patient also drinks 3-4 drinks on daily basis being monitor with CIWA protocol remains clinically stable. Review of Systems Review of Systems: All systems reviewed & are unremarkable except as noted in HPI and below Exam Narrative: Exam Narrative: Patient is comfortable, NAD HEENT: eyes are clear and none icteric LUNGS:CTA HEART: RR S1S2 ABD: BS+, Soft and nontender MS: Left foot wound dressing Lower extremities: no edema SKIN: nonjaundiced Neuro: grossly intact. Objective Data Vital Signs Vital Signs: Vital
[2020-10-01] MEDS: clonazePAM (*CRX) 0.5 MG TABLET 1 MG PO (15:15)
[2020-10-01] MEDS: ACETAMINOPHEN 325 MG TABLET 650 MG PO (16:18)
[2020-10-01] MEDS: MENTHOL 10% / METHYL SALICYLATE 15% 57 GM TUBE 1 APPLIC TOPICAL (16:20)
[2020-10-01 16:22] VITALS: BP 136/82; PULSE 75; RESP 18; TEMP 36.3; O2SAT 95
[2020-10-01] MEDS: MIRTAZAPINE 15 MG TABLET 45 MG PO (21:08)
[2020-10-01] MEDS: MELOXICAM 7.5 MG TABLET PO (21:08)
[2020-10-01 21:11] LABS: Vancomycin Random 12.9 ug/mL (10-20)
[2020-10-01 23:50] VITALS: BP 151/86; PULSE 73; RESP 20; TEMP 36.2; O2SAT 97
[2020-10-02 03:38] VITALS: BP 126/94; PULSE 73; RESP 20; TEMP 36.1; O2SAT 92
[2020-10-02 05:29] LABS: Hematocrit 35.8 % (37.0-47.0); Hemoglobin 11.4 g/dL (12.0-15.0); Mean Corpuscular HGB Conc 31.8 g/dl (32-36); Mean Corpuscular Hemoglobin 29.1 pg (26-34); Mean Corpuscular Volume 91.3 fl (80-100); Mean Platelet Volume 8.6 fl (7.4-10.4); Platelet Count Result 444 k/mm3 (150-375); Red Blood Count 3.92 M/mm3 (4.2-5.4); Red Cell Distribution Width 14.1 % (11.5-14.5); White Blood Count 6.9 K/mm3 (4.5-10.0)
[2020-10-02 05:40] LABS: Anion Gap 4 mmol/L (8-16); Blood Urea Nitrogen 12 mg/dL (7-17); Calcium 9.2 mg/dL (8.4-10.2); Carbon Dioxide 34 mmol/L (22-30); Chloride 97 mmol/L (98-107); Estimated CRCL calculation 109 ml/min; Estimated Glomerular Filt Rate > 60; Glucose 90 mg/dL (65-105); Magnesium 1.9 mg/dL (1.6-2.3); Potassium 4.4 mmol/L (3.4-5.0); Sodium 135 mmol/L (137-145)
[2020-10-02] MEDS: BACLOFEN 10 MG TABLET 20 MG PO ×3 (05:41→22:52)
[2020-10-02] MEDS: HYDROcodone/acetaminophen (*CRX) 5-325 MG TABLET 1 TAB PO ×5 (05:42→22:52)
--- NOTE | 2020-10-02 07:42 | PM.PNORT ---
Progress Note: A&P Assessment and Plan (1) Osteomyelitis: Qualifiers: Laterality: left Osteomyelitis location: foot Osteomyelitis type: other acute Qualified Code(s): M86.172 - Other acute osteomyelitis, left ankle and foot Code(s): M86.9 - Osteomyelitis, unspecified Status: Acute Assessment and Plan: Postoperative day 2. Debridement of left small toe osteomyelitis. Cultures showing Staph aureus, sensitivities pending. Dressing changed today. Toe appears stable. Incision is clean and dry. No signs extension of infection. Discussed with patient operative findings. Continue with postop shoe when. Plan dressing changes every other day. If cultures show resistant bacteria will plan PICC line and home IV antibiotics. If cultures come back as pansensitive will plan discharge with oral medication, Bactrim or equivalent. Subjective Subjective Date/Time Seen: 10/02/20 07:42 Patient awake alert. No new complaints. Exam Const: General: healthy appearing; No in distress or confusion Orientation/consciousness: oriented to person, oriented to place, oriented to time and No confusion HENMT: Head: normal to inspection, normocephalic and atraumatic Eyes: Conjunctivae: conjunctivae normal Sclera: sclerae normal Neck: Neck: supple and nontender Resp: Effort & Inspection: normal respiratory effort and no audible wheezes Cardio: Rate: regular rate Rhythm: regular rhythm Skin: General skin exam: no rashes or lesions noted Neuro: General: oriented to person, oriented to place, oriented to time and No confusion Extrem: Right upper extremity: normal to inspection Left upper extremity: normal to inspection Right lower extremity: normal to inspection, normal capillary refill, ankle Details: normal to inspection and abnormal ROM Details: pain with active ROM, pain with passive ROM and with range as follows (dorsiflexion -10, planter flexion 40, inversion 15, eversion 5); no tenderness and no swelling and foot Details: vascular exam (2+ dorsalis pedis pulse ), tendon exam and motor-sensory exam (strength 5/5 throughout.) Details: two point discrimination abnormal Location: in all toes and light-touch abnormal Location: in all toes; no tenderness and no crepitus; no edema Left lower extremity: ankle Details: normal ROM; no tenderness and no swelling and foot Details: tenderness Location: of another digit Location: the 5th digit, no edema, vascular exam (2+ dorsalis pedis pulse), motor-sensory exam (strength 5/5 except peroneal 4/5 . Light touch sensation intact ) two point discrimination abnormal in all toes and light-touch abnormal in all toes and other (Left small toe surgical incision intact. No drainage. Good capillary refill in the toe. Mild swelling and erythema. No proximal extension of erythema.); no ecchymosis Psych: Affect: normal affect Objective Data Vital Signs Vital Signs: Vital Signs - 24 hr 10/01/20 07:54 10/01/20 08:00 10/01/20 11:54 Temperature 98 F 96.9 F L Pulse Rate 78 78 83 Respiratory Rate 18 18 18 Blood Pressure 131/83 118/76 Pulse Oximetry 93 93 98 10/01/20 16:22 10/01/20 23:50 10/02/20 03:38 Temperature 97.4 F L 97.1 F L 97.0 F L Pulse Rate 75 73 73 Respiratory Rate 18 20 20 Blood Pressure 136/82 151/86 H 126/94 H Pulse Oximetry 95 97 92 Intake/Output Intake/Output: Intake & Output 09/29/20 09/30/20 10/01/20 10/02/20 23:59 23:59 23:59 23:59 Intake Total 2250 2890 4620 650 Output Total 900 Balance 2250 1990 4620 650 Meds/Results Medications: Active Medications Generic Name Dose Route Start Last Admin Trade Name Freq PRN Reason Stop Dose Admin Acetaminophen 650 mg 09/30/20 13:35 10/01/20 16:18 Acetaminophen 325 Mg Tablet PO 650 mg Q6H PRN Administration Pain or Fever Hydrocodone Bitart/Acetaminophen 1 tab 09/28/20 19:14 10/02/20 05:42 Hydrocodone/Acetaminophen (*Crx) 5-325 Mg Tablet PO 1 tab Q4H PRN Administration
[2020-10-02 07:44] VITALS: BP 120/74; PULSE 77; RESP 18; TEMP 36.2; O2SAT 96
[2020-10-02 07:52] VITALS: PULSE 77; RESP 18; O2SAT 96
[2020-10-02] MEDS: FENOFIBRATE NANOCRYSTALLIZED 145 MG TABLET PO (08:11)
[2020-10-02] MEDS: THIAMINE HCL 100 MG TABLET PO (08:11)
[2020-10-02] MEDS: GABAPENTIN 400 MG CAPSULE PO ×3 (08:11→17:47)
[2020-10-02] MEDS: SERTRALINE HCL 50 MG TABLET 100 MG PO (08:11)
[2020-10-02] MEDS: clonazePAM (*CRX) 0.5 MG TABLET 1 MG PO ×2 (08:11→20:21)
[2020-10-02] MEDS: amLODIPine BESYLATE 5 MG TABLET PO (08:12)
[2020-10-02] MEDS: DOCUSATE SODIUM 100 MG CAPSULE PO ×2 (08:12→17:47)
[2020-10-02] MEDS: CALCIUM CARBONATE (OSCAL) 250 MG TABLET PO ×3 (08:12→17:47)
[2020-10-02] MEDS: NAPROXEN 500 MG TABLET PO ×2 (08:12→17:47)
[2020-10-02] MEDS: ATORVASTATIN 10 MG TABLET PO (08:12)
[2020-10-02] MEDS: ACIDOPHILUS/BULGARICUS CHEWABLE TABLET 1 TABLET BY MOUTH (08:12)
[2020-10-02] MEDS: buPROPion HCL XL (24 HR) 150 MG TABCR 300 MG PO (08:13)
[2020-10-02] MEDS: MAGNESIUM OXIDE 400 MG TABLET PO ×3 (08:13→17:47)
[2020-10-02] MEDS: MONTELUKAST SODIUM 10 MG TABLET PO (08:13)
[2020-10-02] MEDS: ACETAMINOPHEN 325 MG TABLET 650 MG PO ×2 (08:13→20:26)
[2020-10-02] MEDS: hydroCHLOROthiazide 12.5 MG CAPSULE PO (08:13)
[2020-10-02] MEDS: MENTHOL 10% / METHYL SALICYLATE 15% 57 GM TUBE 1 APPLIC TOPICAL (08:14)
[2020-10-02] MEDS: FLUTICASONE PROPIONATE 0.05% NA SPR 16 GM BTL (*BKC) 1 SPRAY NASAL ×2 (08:15→17:47)
[2020-10-02] MEDS: FLUTICASONE/SALMETEROL 115-21 MCG INHALER 1 PUFF 2 PUFF INHALATION ×2 (08:15→20:28)
[2020-10-02 12:00] VITALS: BP 90/78; PULSE 76; RESP 18; TEMP 36.5; O2SAT 96
--- NOTE | 2020-10-02 12:08 | PM.IMPN ---
Progress Note: A&P Assessment and Plan (1) Cellulitis of fifth toe, left: Code(s): L03.032 - Cellulitis of left toe Status: Acute Assessment and Plan: 10/02/20 12:08 Patient is 65-year-old female presented with a complaint of left 5th toe possible laceration and or trauma as patient is a poor historian states she is not sure exactly what happened but believes this she dropped heavy pot cover on her toe couple of weeks ago however pain was getting worse last couple of days and presented emergency department further evaluation x-ray of the toe showed fracture of the toe possibly destruction of the bone concerned for cellulitis patient was started on vancomycin imipenem, on 09/29 patient was seen by surgery team discussed with the patient conservative management versus surgery, patient had opted for conservative management with antibiotics, surgeon has ordered MRI of the toe to further evaluate, on 09/30 MRI of the toe showed osteomyelitis patient was taken to OR on 09/30 and infection was removed, on 10/01 patient states feeling better, denies any fever or chills, wound cultures were pending. today 10/02/2020 patient was seen by her surgeon bone culture is growing, staph aureus pending sensitivity, her surgeon has recommended discharge planning based on wound culture, if the staph is MRSA and requiring IV antibiotic will place the PICC line for long-term antibiotic if the organism is not MRSA patient can be discharged home on oral antibiotics such as Bactrim, will continue PT OT further recommendation to follow Patient also drinks 3-4 drinks on daily basis being monitor with CIWA protocol remains clinically stable. (2) Abnormal x-ray of extremity: Code(s): R93.6 - Abnormal findings on diagnostic imaging of limbs Status: Acute Assessment and Plan: Plan is above (3) Hyponatremia: Code(s): E87.1 - Hypo-osmolality and hyponatremia Status: Acute Assessment and Plan: Most likely secondary to alcohol abuse as well as patient is on SSRI will continue to monitor and further recommendation to follow (4) Obstructive sleep apnea: Code(s): G47.33 - Obstructive sleep apnea (adult) (pediatric) Status: Inactive Assessment and Plan: Will continue CPAP (5) Chronic obstructive lung disease: Code(s): J44.9 - Chronic obstructive pulmonary disease, unspecified Status: Acute Assessment and Plan: Clinically stable will continue updraft (6) Alcohol abuse, daily use: Code(s): F10.10 - Alcohol abuse, uncomplicated Status: Acute Assessment and Plan: Patient is clinically stable being monitor with CIWA protocol and low-dose of Librium (7) Chronic pain syndrome: Code(s): G89.4 - Chronic pain syndrome Status: Acute Assessment and Plan: Will continue home regimen Subjective Date/time seen: 10/02/20 12:08 Patient is 65-year-old female presented with a complaint of left 5th toe possible laceration and or trauma as patient is a poor historian states she is not sure exactly what happened but believes this she dropped heavy pot cover on her toe couple of weeks ago however pain was getting worse last couple of days and presented emergency department further evaluation x-ray of the toe showed fracture of the toe possibly destruction of the bone concerned for cellulitis patient was started on vancomycin imipenem, on 09/29 patient was seen by surgery team discussed with the patient conservative management versus surgery, patient had opted for conservative management with antibiotics, surgeon has ordered MRI of the toe to further evaluate, on 09/30 MRI of the toe showed osteomyelitis patient was taken to OR on 09/30 and infection was removed, on 10/01 patient states feeling better, denies any fever or chills, wound cultures were pending. today 10/02/2020 patient was seen by her surgeon bone culture is growing, staph aureus pending sensitivity, her surgeon marlene
[2020-10-02 20:00] VITALS: BP 132/75; PULSE 75; RESP 15; O2SAT 94
[2020-10-02] MEDS: MIRTAZAPINE 15 MG TABLET 45 MG PO (20:21)
[2020-10-02] MEDS: MELOXICAM 7.5 MG TABLET PO (20:21)
[2020-10-03] VITALS: BP 116/81; PULSE 83; RESP 16; TEMP 36.2; O2SAT 94
[2020-10-03 04:00] VITALS: BP 139/82; PULSE 79; RESP 14; TEMP 36.4; O2SAT 93
[2020-10-03] MEDS: BACLOFEN 10 MG TABLET 20 MG PO (05:07)
[2020-10-03] MEDS: HYDROcodone/acetaminophen (*CRX) 5-325 MG TABLET 1 TAB PO ×2 (05:07→09:14)
[2020-10-03 05:11] LABS: Hematocrit 34.1 % (37.0-47.0); Mean Corpuscular HGB Conc 32.3 g/dl (32-36); Mean Corpuscular Hemoglobin 29.1 pg (26-34); Mean Corpuscular Volume 90.2 fl (80-100); Mean Platelet Volume 8.5 fl (7.4-10.4); Platelet Count Result 395 k/mm3 (150-375); Red Blood Count 3.78 M/mm3 (4.2-5.4); Red Cell Distribution Width 14.1 % (11.5-14.5); White Blood Count 7.5 K/mm3 (4.5-10.0)
[2020-10-03 05:26] LABS: Anion Gap 3 mmol/L (8-16); Blood Urea Nitrogen 16 mg/dL (7-17); Calcium 9.2 mg/dL (8.4-10.2); Carbon Dioxide 34 mmol/L (22-30); Chloride 94 mmol/L (98-107); Estimated CRCL calculation 109 ml/min; Estimated Glomerular Filt Rate > 60; Glucose 102 mg/dL (65-105); Magnesium 1.9 mg/dL (1.6-2.3); Potassium 4.1 mmol/L (3.4-5.0); Sodium 131 mmol/L (137-145)
[2020-10-03 08:00] VITALS: PULSE 79; RESP 14; O2SAT 93
[2020-10-03] MEDS: FLUTICASONE PROPIONATE 0.05% NA SPR 16 GM BTL (*BKC) 1 SPRAY NASAL (09:06)
[2020-10-03] MEDS: FLUTICASONE/SALMETEROL 115-21 MCG INHALER 1 PUFF 2 PUFF INHALATION (09:07)
[2020-10-03] MEDS: GABAPENTIN 400 MG CAPSULE PO (09:07)
[2020-10-03] MEDS: MONTELUKAST SODIUM 10 MG TABLET PO (09:07)
[2020-10-03] MEDS: hydroCHLOROthiazide 12.5 MG CAPSULE PO (09:07)
[2020-10-03] MEDS: NAPROXEN 500 MG TABLET PO (09:08)
[2020-10-03] MEDS: MAGNESIUM OXIDE 400 MG TABLET PO (09:08)
[2020-10-03] MEDS: FENOFIBRATE NANOCRYSTALLIZED 145 MG TABLET PO (09:08)
[2020-10-03] MEDS: DOCUSATE SODIUM 100 MG CAPSULE PO (09:08)
[2020-10-03] MEDS: ACIDOPHILUS/BULGARICUS CHEWABLE TABLET 1 TABLET BY MOUTH (09:08)
[2020-10-03] MEDS: ATORVASTATIN 10 MG TABLET PO (09:08)
[2020-10-03] MEDS: CALCIUM CARBONATE (OSCAL) 250 MG TABLET PO (09:08)
[2020-10-03] MEDS: THIAMINE HCL 100 MG TABLET PO (09:08)
[2020-10-03] MEDS: SERTRALINE HCL 50 MG TABLET 100 MG PO (09:09)
[2020-10-03] MEDS: buPROPion HCL XL (24 HR) 150 MG TABCR 300 MG PO (09:09)
[2020-10-03] MEDS: amLODIPine BESYLATE 5 MG TABLET PO (09:09)
[2020-10-03 10:26] VITALS: BP 128/92; PULSE 74; RESP 20; TEMP 36.1; O2SAT 97
--- NOTE | 2020-10-03 10:40 | PM.DS ---
DS: Admitting Diagnosis Admitting Diagnosis Admitting Diagnosis: Left foot wound. DS: Discharge Diagnosis Discharge Diagnosis (1) Cellulitis of fifth toe, left: Code(s): L03.032 - Cellulitis of left toe Status: Acute Assessment and Plan: 10/02/20 12:08 Patient is 65-year-old female presented with a complaint of left 5th toe possible laceration and or trauma as patient is a poor historian states she is not sure exactly what happened but believes this she dropped heavy pot cover on her toe couple of weeks ago however pain was getting worse last couple of days and presented emergency department further evaluation x-ray of the toe showed fracture of the toe possibly destruction of the bone concerned for cellulitis patient was started on vancomycin imipenem, on 09/29 patient was seen by surgery team discussed with the patient conservative management versus surgery, patient had opted for conservative management with antibiotics, surgeon has ordered MRI of the toe to further evaluate, on 09/30 MRI of the toe showed osteomyelitis patient was taken to OR on 09/30 and infection was removed, on 10/01 patient states feeling better, denies any fever or chills, wound cultures were pending. today 10/02/2020 patient was seen by her surgeon bone culture is growing, staph aureus pending sensitivity, her surgeon has recommended discharge planning based on wound culture, if the staph is MRSA and requiring IV antibiotic will place the PICC line for long-term antibiotic if the organism is not MRSA patient can be discharged home on oral antibiotics such as Bactrim, will continue PT OT further recommendation to follow Patient also drinks 3-4 drinks on daily basis being monitor with CIWA protocol remains clinically stable. (2) Abnormal x-ray of extremity: Code(s): R93.6 - Abnormal findings on diagnostic imaging of limbs Status: Acute Assessment and Plan: Plan is above (3) Hyponatremia: Code(s): E87.1 - Hypo-osmolality and hyponatremia Status: Acute Assessment and Plan: Most likely secondary to alcohol abuse as well as patient is on SSRI will continue to monitor and further recommendation to follow (4) Obstructive sleep apnea: Code(s): G47.33 - Obstructive sleep apnea (adult) (pediatric) Status: Inactive Assessment and Plan: Will continue CPAP (5) Chronic obstructive lung disease: Code(s): J44.9 - Chronic obstructive pulmonary disease, unspecified Status: Acute Assessment and Plan: Clinically stable will continue updraft (6) Alcohol abuse, daily use: Code(s): F10.10 - Alcohol abuse, uncomplicated Status: Acute Assessment and Plan: Patient is clinically stable being monitor with CIWA protocol and low-dose of Librium (7) Chronic pain syndrome: Code(s): G89.4 - Chronic pain syndrome Status: Acute Assessment and Plan: Will continue home regimen DS: Summary Hospital Course Reason for hospitalization: Chief Complaint: Left foot wound. Narrative: Dotty Guevara is a [id number] with spinal stenosis, peripheral neuropathy, hypertension, and COPD who presented to the emergency department earlier today from home with complaints of a left foot wound. A couple of weeks ago she noticed her left 5th toe was bleeding and she assumed that she must have stepped on something while walking in her home barefoot although she did not feel it due to neuropathy. It is been a bit sore since that time but not significantly so. The location of the injury is in a region that she cannot actively see and thus she is not sure whether not it was red or swollen. Today ?it popped open? and began to bleed again thus she came in for evaluation. An x-ray of the left 5th toe showed findings of either a fracture or bone destruction at the lateral aspect of the head of the proximal phalanx as well as soft tissue swelling. It is in this setting that she is being a
== END 2020-10-03 12:30 | disposition home or self-care (01) | DRG 320 ==
LOC: ANHED 15:55 → ANHCPC 20:26
PROVIDERS: Orthopaedic Surgery; Physician Assistant; Admitting Provider Student in an Organized Health Care Education/Training Program; Emergency Provider Emergency Medicine; PCP Nurse Practitioner Family; Visit Provider Family Medicine
PROC: 0QBR0ZZ Excision of Left Toe Phalanx, Open Approach (ICD-10-PCS; principal; 2020-09-30 12:00)
DX: M86.172 Other acute osteomyelitis, left ankle and foot (principal); L03.032 Cellulitis of left toe; M00.872 Arthritis due to other bacteria, left ankle and foot; B95.61 Methicillin susceptible Staphylococcus aureus infection as the cause of diseases classified elsewhere; R93.6 Abnormal findings on diagnostic imaging of limbs; E87.1 Hypo-osmolality and hyponatremia; F10.10 Alcohol abuse, uncomplicated; G47.33 Obstructive sleep apnea (adult) (pediatric); J44.9 Chronic obstructive pulmonary disease, unspecified; G89.4 Chronic pain syndrome; E78.5 Hyperlipidemia, unspecified; M54.16 Radiculopathy, lumbar region; M19.90 Unspecified osteoarthritis, unspecified site; G62.9 Polyneuropathy, unspecified; M48.00 Spinal stenosis, site unspecified; Z90.710 Acquired absence of both cervix and uterus; Z87.891 Personal history of nicotine dependence
CPT/HCPCS: 36415; 73630; 73720; 80048; 80053; 80202; 83605; 83735; 85025; 85027; 85652; 86140; 87070; 87075; 87147; 87186; 87205; 94640; 96361; 96365; 96366; 96367; 97116; 97161; 97165; 97535; 99285; A9270; A9577; G0378; G0379; J0743; J3010; J3370; J7040; J7060; J7120

== ENCOUNTER 2020-11-20 11:40 | Emergency (ER) | payer OTHER, SELFPAY ==
[2020-11-20 11:45] VITALS: BP 151/104; PULSE 95; RESP 18; TEMP 37.2; O2SAT 98
--- NOTE | 2020-11-20 12:13 | ED.GENADULT ---
HPI - General Adult General Chief complaint: Unspecified Stated complaint: RA pain, hallucinations and possible seizures Time Seen by Provider: 11/20/20 11:56 Source: patient, family, RN notes reviewed and old records reviewed History of Present Illness HPI narrative: 65-year-old female presents to emergency department for bilateral hand, bilateral wrist, and right shoulder pain for months. Patient states the pain is from her rheumatoid arthritis. She has not take anything recently for the pain. Pain worse with movement. She states her family doctor is not treating her pain adequately, and was told to come into the emergency department for further evaluation and treatment. Patient denies chest pain or shortness of breath. No abdominal pain. No nausea or vomiting. Related Data Home Medications Medication Instructions Recorded Confirmed L. acidophilus 5 mg-digestive 1 cap PO DAILY 02/27/20 09/28/20 enzymes combo no.5 250 mg capsule albuterol sulfate 90 mcg/actuation 1 inhalation INHALATION Q4H 02/27/20 09/28/20 aerosol inhaler amlodipine 5 mg tablet 5 mg PO DAILY 02/27/20 09/28/20 atorvastatin 10 mg tablet 10 mg PO DAILY 02/27/20 09/28/20 baclofen 20 mg tablet 20 mg PO Q8H PRN 02/27/20 09/29/20 bupropion HCl 300 mg 24 hr tablet, 300 mg PO QAM 02/27/20 09/28/20 extended release calcium-magnesium 300 mg-300 mg 1 tablet PO TID 02/27/20 09/28/20 tablet clonazepam 0.5 mg tablet 1 mg PO BID PRN 02/27/20 09/29/20 fenofibrate nanocrystallized 145 145 mg PO DAILY 02/27/20 09/28/20 mg tablet fluticasone 250 mcg-salmeterol 50 1 inhalation INHALATION BID 02/27/20 09/28/20 mcg/dose blistr powdr for inhalation fluticasone propionate 50 1 spray NASAL BID 02/27/20 09/28/20 mcg/actuation nasal spray,suspension gabapentin 400 mg capsule 400 mg PO TID 02/27/20 09/28/20 glucosamine 750 qe-[id number]-ynz 1 tablet PO BID 02/27/20 09/28/20 no1 644 mg-C 30 mg-dima 1 mg tablet hydrochlorothiazide 12.5 mg capsule 12.5 mg PO DAILY 02/27/20 09/28/20 montelukast 10 mg tablet 10 mg PO DAILY 02/27/20 09/28/20 naproxen 500 mg tablet 500 mg PO BID 02/27/20 09/28/20 sertraline 100 mg tablet 100 mg PO DAILY 02/27/20 09/28/20 thiamine HCl (vitamin B1) 100 mg 100 mg PO DAILY 02/27/20 09/28/20 tablet mirtazapine 45 mg PO HS 09/29/20 09/29/20 meloxicam 11/20/20 methocarbamol mg 11/20/20 Allergies Allergy/AdvReac Type Severity Reaction Status Date / Time latex Allergy Rash Verified 11/20/20 12:13 Review of Systems Review of Systems: Narrative: CONSTITUTIONAL: Denies fever, chills, or sweats. EYES: Denies visual changes, redness, or discharge. ENT: Denies rhinorrhea, congestion, sore throat, or otalgia. CARDIOVASCULAR: Denies chest pain, palpitations, or edema. RESPIRATORY: Denies cough or dyspnea. GASTROINTESTINAL: Denies abdominal pain, nausea, vomiting, or diarrhea. GENITOURINARY: Denies dysuria or hematuria. SKIN: Denies rash or itching. MUSCULOSKELETAL: Denies back pain, joint pain, or myalgia. NEUROLOGIC: Denies headache, numbness, dizziness, or weakness. PSYCHIATRIC: Denies anxiety or depression. All systems reviewed & are unremarkable except as noted in HPI and below (ROS) [facility] Past Medical History Medical History Alcohol abuse, daily use Allergic rhinitis Chronic obstructive lung disease Chronic pain syndrome Essential hypertension Hyperlipemia Lumbar radiculopathy Neuropathy, peripheral, idiopathic Obstructive sleep apnea Osteoarthritis Peripheral neuropathy Spinal stenosis Surgical History Surgical History History of hysterectomy History of lumbar surgery X2. History of surgery on arm ORIF left humerus fracture. History of tonsillectomy Family History Family History Mother Chronic obstructive lung disease Father Dementia Sibling
[2020-11-20 12:14] VITALS: BP 144/93; PULSE 84; RESP 18; TEMP 36.2; O2SAT 98
[2020-11-20] MEDS: MORPHINE SULFATE INJ (*CRX) 10 MG/ML AMP 4 MG IM (12:23)
[2020-11-20 12:53] VITALS: BP 142/99; PULSE 88; RESP 19; TEMP 36.6; O2SAT 97
[2020-11-20 14:17] VITALS: BP 134/80; PULSE 88; RESP 16; O2SAT 97
== END 2020-11-20 14:18 | disposition home or self-care (01) ==
PROVIDERS: Emergency Provider Emergency Medicine; PCP Nurse Practitioner Family
DX: M06.9 Rheumatoid arthritis, unspecified (principal); J44.9 Chronic obstructive pulmonary disease, unspecified; G89.4 Chronic pain syndrome; I10 Essential (primary) hypertension; E78.5 Hyperlipidemia, unspecified; G60.9 Hereditary and idiopathic neuropathy, unspecified; G47.33 Obstructive sleep apnea (adult) (pediatric); F17.290 Nicotine dependence, other tobacco product, uncomplicated
CPT/HCPCS: 96372; 99283; J2270

== ENCOUNTER 2020-12-29 11:26 | Outpatient (CLI) | payer OTHER, SELFPAY ==
--- NOTE | ~2020-12-29 | XR_ITS ---
EXAMINATION: XR foot LT 2V DATE: 12/29/2020 12:35 INDICATION: Therapeutic drug monitoring. Joint swelling. TECHNIQUE: 2 views of left foot were obtained. COMPARISON: Left foot radiographs 09/28/2020 FINDINGS: There is moderate hallux valgus. No acute fracture. There are old healed fractures of the n ecks of fourth and fifth metatarsals. There are changes of resection of base of fifth middle phalanx and distal half of fifth proximal phalanx. There is mild osteoarthritis of first metatarsophalangeal joint. IMPRESSION: 1. Moderate hallux valgus. 2. Mild osteoarthritis of first metatarsophalangeal joint. Reviewed, dictated and finalized at location A.
--- NOTE | ~2020-12-29 | XR_ITS ---
EXAMINATION: XR foot RT 2V DATE: 12/29/2020 12:35 INDICATION: Therapeutic drug monitoring. Joint swelling. TECHNIQUE: 2 views of right foot were obtained. COMPARISON: None. FINDINGS: There is moderate hallux valgus. No fracture. There is severe osteoarthritis of first metat arsophalangeal joint and mild osteoarthritis of third and fifth metatarsophalangeal joints. There is an enthesophyte at plantar aspect of calcaneal tuberosity. There are punctate densities near the base of third proximal phalanx. IMPRESSION: 1. Moderate hallux valgus. 2. Polyarticular osteoarthritis. Reviewed, dictated and finalized at location A.
--- NOTE | ~2020-12-29 | XR_ITS ---
XR shoulder RT min 2V 12/29/2020 12:35 Indication: Joint swelling. Shoulder pain. Procedure: 4 views right shoulder Comparison: 08/18/2020 Findings: There is been progression of severe osteoarthritis of the right glenohumeral joint with sub chondral cyst and cortical discontinuity, suspicious for avascular necrosis of the humeral head. Ther e is narrowing of the subacromial space, suspicious for rotator cuff tear. There is also subchondral cyst formation within the glenoid process. Impression: 1: Progression of severe glenohumeral joint osteoarthritis with possible avascular necrosis of the hu meral head. 2: Narrowing of the subacromial space, suspicious for rotator cuff tear. Reviewed, dictated and finalized at location B. Impression: 1: Progression of severe glenohumeral joint osteoarthritis with possible avascu lar necrosis of the humeral head. 2: Narrowing of the subacromial space, suspicious for rotator cuff tear.
--- NOTE | ~2020-12-29 | XR_ITS ---
XR shoulder LT min 2V 12/29/2020 12:35 Indication: Therapeutic drug monitoring. Joint swelling. Procedure: 4 views left shoulder Comparison: No prior studies for comparison. Findings: There is mild osteoarthritis of the left acromioclavicular and glenohumeral joints. There a re is a healed left fourth rib fracture. There is a healed left humeral fracture transfixed by side p late and screws with exuberant callus formation. No acute fracture is identified. Impression: 1: Mild polyarticular osteoarthritis of the left shoulder. Reviewed, dictated and finalized at location B. Impression: 1: Mild polyarticular osteoarthritis of the left shoulder.
--- NOTE | ~2020-12-29 | XR_ITS ---
EXAMINATION: 1. XR wrist RT 2V 2. XR wrist LT 2V 3. XR hand LT 2V 4. XR hand RT 2V DATE: 12/29/2020 12:35 INDICATION: Therapeutic drug monitoring. Joint swelling. TECHNIQUE: 2 views of right wrist, 2 views of right hand, 2 views of left wrist, and 2 views of left hand were obtained. COMPARISON: Left wrist radiographs 08/18/2020 FINDINGS: RIGHT WRIST: Scapholunate dissociation is noted. There is degenerative cystic change in proximal gris te, consistent with ulnolunate impaction syndrome. No fracture. There is diffuse osteopenia. There is mild osteoarthritis of triscaphe joint and severe osteoarthritis of first carpometacarpal joint. RIGHT HAND: There is hyperextension of first metacarpophalangeal joint. There is ulnar subluxation of second middle phalanx with respect to the proximal phalanx. No fracture. There is moderate to severe osteoarthritis of first-third metacarpophalangeal joints, severe osteoarthritis of second and fourth proximal interphalangeal joints, and mild osteoarthritis of the other interphalangeal joints. LEFT WRIST: Scapholunate dissociation is noted. There is volume loss of proximal aspect of lunate and distal aspect of the ulna, consistent with pseudoarthrosis. There is severe osteoarthritis of radiol unate joint and mild osteoarthritis of triscaphe joint and first carpometacarpal joint. There is diff use osteopenia. LEFT HAND: The fingers demonstrate normal bone alignment. No fracture. There is mild osteoarthritis o f first and second metacarpophalangeal joints and moderate osteoarthritis of third metacarpophalangea l joint. There is mild osteoarthritis of most of the interphalangeal joints. IMPRESSION: 1. Pseudoarthrosis between left ulna and lunate with bone volume loss of distal ulna and proximal doris ate, worsened from 08/18/20. 2. Bilateral scapholunate dissociation. 3. Polyarticular osteoarthritis. Reviewed, dictated and finalized at location A. IMPRESSION: 1. Pseudoarthrosis between left ulna and lunate with bone volume loss of distal ulna and proximal lunate, worsened from 08/18/20. 2. Bilateral scapholunate dissociation. 3. Polyarticular osteoarthritis. IMPRESSION: 1. Pseudoarthrosis between left ulna and lunate with bone volume loss of distal ulna and proximal lunate, worsened from 08/18/20. 2. Bilateral scapholunate dissociation. 3. Polyarticular osteoarthritis. IMPRESSION: 1. Pseudoarthrosis between left ulna and lunate with bone volume loss of distal ulna and proximal lunate, worsened from 08/18/20. 2. Bilateral scapholunate dissociation. 3. Polyarticular osteoarthritis.
--- NOTE | ~2020-12-29 | XR_ITS ---
XR chest 2V 12/29/2020 12:35 Indication: Therapeutic drug monitoring. Joint swelling. Procedure: PA and lateral views of the chest Comparison: No prior studies for comparison. Findings: There are bibasilar infiltrates, right greater than left. Heart size normal. No edema, sign ificant effusion or pneumothorax. There is a burst fracture of lower thoracic spine treated with vert ebroplasty. Impression: 1: Bibasilar infiltrates may represent atelectasis, scarring and/or pneumonia. Reviewed, dictated and finalized at location B. Impression: 1: Bibasilar infiltrates may represent atelectasis, scarring and/or pneumonia.
== END 2020-12-29 11:27 | disposition home or self-care (01) ==
LOC: ANHIMG 11:42
PROVIDERS: PCP Nurse Practitioner Family
DX: M19.071 Primary osteoarthritis, right ankle and foot (principal); S63.232A Subluxation of proximal interphalangeal joint of right middle finger, initial encounter; Z51.81 Encounter for therapeutic drug level monitoring; M20.12 Hallux valgus (acquired), left foot; M20.11 Hallux valgus (acquired), right foot; M19.072 Primary osteoarthritis, left ankle and foot; Z79.899 Other long term (current) drug therapy; M25.40 Effusion, unspecified joint; M18.0 Bilateral primary osteoarthritis of first carpometacarpal joints; M19.042 Primary osteoarthritis, left hand; M19.041 Primary osteoarthritis, right hand; M19.032 Primary osteoarthritis, left wrist; M19.031 Primary osteoarthritis, right wrist; S22.001A Stable burst fracture of unspecified thoracic vertebra, initial encounter for closed fracture; M19.012 Primary osteoarthritis, left shoulder; M19.011 Primary osteoarthritis, right shoulder; R91.8 Other nonspecific abnormal finding of lung field
CPT/HCPCS: 71046; 73030; 73100; 73120; 73620

== ENCOUNTER 2021-10-18 10:27 | Emergency (ER) | payer OTHER, SELFPAY ==
[2021-10-18 10:27] VITALS: BP 126/89; PULSE 90; RESP 18; TEMP 36.5; O2SAT 96
--- NOTE | 2021-10-18 14:00 | PC.NURSE ---
Provider in to see patient. patient not seen in room. Patient not found in bathrooms. no personal possessions observed in room.
== END 2021-10-19 03:33 | disposition left against medical advice (07) ==
PROVIDERS: PCP Nurse Practitioner Family
DX: Z76.0 Encounter for issue of repeat prescription (principal)
CPT/HCPCS: 99199

== ENCOUNTER 2022-06-24 13:08 | Emergency (ER) | payer OTHER, SELFPAY ==
--- NOTE | ~2022-06-24 | XR_ITS ---
XR chest 2V 06/24/2022 14:05 Indication: Difficulty breathing. Productive cough. Procedure: 2 view chest Comparison: 12/29/2020 Findings: Heart size normal. Chronic right upper lobe atelectasis/scarring. No focal pneumonia, edema , pleural effusion or pneumothorax. There is a lower thoracic vertebral fracture treated with vertebr oplasty. There is deformity of the proximal aspect of the left humerus, partially visualized, likely posttraumatic. Impression: 1: No acute cardiopulmonary disease. Reviewed, dictated and finalized at location A. Impression: 1: No acute cardiopulmonary disease.
[2022-06-24 13:18] VITALS: BP 150/87; PULSE 91; RESP 16; TEMP 37.4; O2SAT 93
--- NOTE | 2022-06-24 13:50 | ED.SOB ---
HPI - SOB/Dyspnea General Chief Complaint: Upper Respiratory Infection Stated Complaint: shortness of breath, coughing phlem Time Seen by Provider: 06/24/22 13:51 History of Present Illness HPI Narrative: Dotty Guevara is a 67 yo female with a PMH of COPD, HTN, high cholesterol, anxiety, chronic pain, [facility], O2 sats 93%, still uses an e cigarette. Has used machine multiple times. Also needs new O2 tubing Related Data Home Medications Medication Instructions Recorded Confirmed L. acidophilus 5 mg-digestive 1 cap PO DAILY 02/27/20 06/24/22 enzymes combo no.5 250 mg capsule (Probiotic-Digestive Enzymes) albuterol sulfate 90 mcg/actuation 1 inhalation inhalation Q4H 02/27/20 06/24/22 aerosol inhaler (ProAir HFA) amlodipine 5 mg tablet 5 mg PO DAILY 02/27/20 06/24/22 atorvastatin 10 mg tablet 10 mg PO DAILY 02/27/20 06/24/22 baclofen 20 mg tablet 20 mg PO Q8H PRN Muscle Spasm 02/27/20 06/24/22 bupropion HCl 300 mg 24 hr tablet, 300 mg PO QAM 02/27/20 06/24/22 extended release calcium-magnesium 300 mg-300 mg 1 tablet PO TID 02/27/20 06/24/22 tablet clonazepam 0.5 mg tablet 1 mg PO BID PRN Anxiety 02/27/20 06/24/22 fenofibrate nanocrystallized 145 145 mg PO DAILY 02/27/20 06/24/22 mg tablet fluticasone 250 mcg-salmeterol 50 1 inhalation inhalation BID 02/27/20 06/24/22 mcg/dose blistr powdr for inhalation (Wixela Inhub) fluticasone propionate 50 1 spray intranasal BID 02/27/20 06/24/22 mcg/actuation nasal spray,suspension gabapentin 400 mg capsule 400 mg PO TID 02/27/20 06/24/22 glucosamine 750 [id number] 1 tablet PO BID 02/27/20 06/24/22 no1 644 mg-C 30 mg-dima 1 mg tablet (Osteo Bi-Flex Triple Strength) hydrochlorothiazide 12.5 mg capsule 12.5 mg PO DAILY 02/27/20 06/24/22 montelukast 10 mg tablet 10 mg PO DAILY 02/27/20 06/24/22 naproxen 500 mg tablet 500 mg PO BID 02/27/20 06/24/22 sertraline 100 mg tablet 100 mg PO DAILY 02/27/20 06/24/22 thiamine HCl (vitamin B1) 100 mg 100 mg PO DAILY 02/27/20 06/24/22 tablet mirtazapine 45 mg tablet 45 mg PO HS 09/29/20 06/24/22 meloxicam 15 mg tablet 15 mg PO DAILY 11/20/20 06/24/22 methocarbamol 750 mg tablet 750 mg PO DAILY 11/20/20 06/24/22 Allergies Allergy/AdvReac Type Severity Reaction Status Date / Time latex Allergy Rash Verified 06/24/22 13:25 Review of Systems Review of Systems: CONSTITUTIONAL: Denies fever, chills, sweats. EYES: Denies visual changes, redness, discharge. ENT: Denies rhinorrhea, congestion, sore throat, otalgia. CARDIOVASCULAR: Denies chest pain, palpitations, edema. RESPIRATORY: Denies dyspnea, wheezing, cough, increased shortness of breath and O2 sats 93% GASTROINTESTINAL: Denies abdominal pain, nausea, vomiting, diarrhea. GENITOURINARY: Denies dysuria, hematuria, abnormal discharge SKIN: Denies rash or itching. NEUROLOGIC: Denies numbness, or focal weakness. PSYCHIATRIC: Denies anxiety or depression. [facility] Past Medical History Medical History Alcohol abuse, daily use Allergic rhinitis Chronic obstructive lung disease Chronic pain syndrome Essential hypertension Hyperlipemia Lumbar radiculopathy Neuropathy, peripheral, idiopathic Obstructive sleep apnea Osteoarthritis Peripheral neuropathy Spinal stenosis Surgical History Surgical History History of hysterectomy History of lumbar surgery X2. History of surgery on arm ORIF left humerus fracture. History of tonsillectomy Family History Family History Mother Chronic obstructive lung disease Father Dementia Sibling Chronic obstructive lung disease Schizophrenia Bipolar disorder Hypertension Sibling Hypertension Social History Social History Social History: Surrogate de
== END 2022-06-24 14:35 | disposition home or self-care (01) ==
PROVIDERS: Emergency Provider Nurse Practitioner; PCP Nurse Practitioner Family
DX: J44.9 Chronic obstructive pulmonary disease, unspecified (principal); I10 Essential (primary) hypertension; F41.9 Anxiety disorder, unspecified; E78.5 Hyperlipidemia, unspecified; G47.33 Obstructive sleep apnea (adult) (pediatric); Z72.0 Tobacco use; F12.90 Cannabis use, unspecified, uncomplicated; F10.10 Alcohol abuse, uncomplicated
CPT/HCPCS: 71046; 99213; G0463

== ENCOUNTER 2024-09-25 16:14 | Emergency (ER) | payer OTHER, SELFPAY ==
--- NOTE | ~2024-09-25 | CT_ITS ---
CT brain wo con Ordering provider: Stefanie Brito PA-C History: 69 years Female with . left sided facial paralysis . Comparison: August 18, 2020 Technique: CT of the head without contrast. Radiation reduction technique utilized.The dose-length product was 605.33 mGy-cm. FINDINGS: BRAIN PARENCHYMA AND CSF SPACES: Mild leukoaraiosis and diffuse cortical atrophy. Mild atheromatous d isease. Moderate dilatation of the ventricles which is not compatible with the degree of brain atroph y. Normal pressure hydrocephalus should be considered. No midline shift, mass effect or hemorrhage. The brain parenchyma and CSF spaces are otherwise normal. VISUALIZED PARANASAL SINUSES: Bilateral maxillary sinus disease.. MASTOIDS: Well aerated. BONES: The bones appear intact. SOFT TISSUES: Visualized nasopharynx is normal. Superficial soft tissues are normal. IMPRESSION: No acute intracranial findings. Moderate Hydrocephalus with mild brain atrophy. Normal pressure hydrocephalus should be considered. Reviewed, dictated and finalized at location A. PMENT OPERATOR/LABORER IMPRESSION: No acute intracranial findings. Moderate Hydrocephalus with mild brain atrophy. Normal pressure hydrocephalus s hould be considered.
[2024-09-25 16:21] VITALS: BP 119/71; PULSE 90; RESP 16; TEMP 36.6; O2SAT 96
--- NOTE | 2024-09-25 16:22 | ECG_ITS ---
Test Date: 2024-09-25 18:45:07 Measurements Intervals [place] Rate: 88 P: 37 NM: 112 QRS: 47 QRSD: 99 T: 66 QT: 353 QTc: 429 Interpretive Statements SINUS RHYTHM WITH SHORT NM INTERVAL ABNORMAL ECG No previous ECG available for comparison Electronically Signed On 09-26-2024 17:07:36 [employer] by Yogi Olivier M.D.
--- NOTE | 2024-09-25 16:22 | ED.NEUROSD ---
HPI - Neuro Symptoms/Deficit General Chief Complaint: Neuro Symptoms/Deficit <Stefanie Brito PA-C - Last Filed: 09/29/24 17:33> Stated Complaint: L sided facial droop <Stefanie Brito PA-C - Last Filed: 09/29/24 17:33> Time Seen by Provider: 09/25/24 16:22 <Stefanie Brito PA-C - Last Filed: 09/29/24 17:33> Focused HPI: This is a 69 year old female that presents to the ER for left sided facial droop. She started to have pain in the left eye. Yesterday she noted the left side of her face was drooping. She cannot close her left eye. She has had [place] palsy in the past GENERAL: Well-appearing, well-nourished, and in no acute distress. HEAD: Left sided facial droop noted. Unable to close left eye or raise left eyebrow CHEST: Clear to auscultation. ?No respiratory distress. HEART: Regular rate and rhythm.? NEURO: ?Alert and oriented x3. Patient screened in triage and initial orders placed.? ?Additional care and disposition to be based upon?diagnostic testing and treatment. <Stefanie Brito PA-C - Last Filed: 09/29/24 17:33> History of Present Illness HPI Narrative: Patient 69-year-old female presents emergency department with chief complaint of left-sided facial droop. Patient reports that she started having discomfort in her left eye I do felt as though it was dry and scratchy the patient states that she noticed the left side of her face was droopy today and reports that it involves the forehead. 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 <Ced Cueto MD - Last Filed: 09/25/24 22:33> Related Data Home Medications: Home Medications ?Medication ?Instructions ?Recorded ?Confirmed ?Last Taken ?Type bupropion HCl 300 mg 24 hr tablet, 300 mg PO QAM 02/27/20 08/29/23 Unknown History extended release clonazepam 0.5 mg tablet 1 mg PO BID PRN Anxiety 02/27/20 08/29/23 Unknown History fluticasone 250 mcg-salmeterol 50 1 inhalation inhalation BID 02/27/20 08/29/23 Unknown History mcg/dose blistr powdr for inhalation (Mukesh Inhub) fluticasone propionate 50 1 spray intranasal BID 02/27/20 08/29/23 Unknown History mcg/actuation nasal spray,suspension gabapentin 400 mg capsule 400 mg PO TID 02/27/20 08/29/23 Unknown History hydrochlorothiazide 12.5 mg capsule 12.5 mg PO DAILY 02/27/20 08/29/23 Unknown History montelukast 10 mg tablet 10 mg PO DAILY 02/27/20 08/29/23 Unknown History sertraline 100 mg tablet 100 mg PO DAILY 02/27/20 08/29/23 Unknown History thiamine HCl (vitamin B1) 100 mg 100 mg PO DAILY 02/27/20 08/29/23 Unknown History tablet meloxicam 15 mg tablet 15 mg PO DAILY 11/20/20 08/29/23 Unknown History adalimumab 40 mg/0.8 mL 40 mg subcut ONCE 08/01/23 08/29/23 Unknown History subcutaneous syringe kit (Humira) cariprazine 1.5 mg capsule 1.5 mg PO DAILY 08/01/23 08/29/23 Unknown History (Vraylar) cholecalciferol (vitamin D3) 25 25 mcg PO DAILY 08/01/23 08/29/23 Unknown History mcg (1,000 unit) capsule mirtazapine 15 mg tablet 15 mg PO DAILY 08/01/23 08/29/23 Unknown History mirtazapine 7.5 mg tablet 7.5 mg PO DAILY 08/01/23 08/29/23 Unknown History omeprazole 40 mg capsule,delayed 40 mg PO DAILY 08/01/23 08/29/23 Unknown History release <Stefanie Brito PA-C - Last Filed: 09/29/24 17:33> Allergies/Adverse Reactions: Allergies Allergy/AdvReac Type Severity Reaction Status Date / Time latex Allergy Rash Verified 08/29/23 14:49 <Stefanie Brito PA-C - Last Filed: 09/29/24 17:33> Review of Systems Review of Systems: A 10 system review of systems was completed on the patient and is negative except for what is stated in the HPI. Nursing and ancillary documentation was reviewed. <Ced Cueto MD - Last Filed: 09/25/24 22:33> [facility] Past Medical History Medical History: Medical History Rheumatoid arthritis Neuropathy, peripheral, idiopathic Chronic pain syndrome Alcohol abuse, daily use Obstructive sleep apnea Spinal stenosis Peripheral neuropathy Lumbar radiculopathy Osteoarthritis Chronic obstructive lung disease Allergic rhinitis Essential hypertension Hyperlipemia <Stefanie Brito PA-C - Last Filed: 09/29/24 17:33> Surgical History Surgical History: Surgical History History of tonsillectomy History of hysterectomy History of lumbar surgery X2. History of surgery on arm ORIF left humerus fracture. <Stefanie Brito PA-C - Last Filed: 09/29/24 17:33> Family History Family History: Family History Mother Chronic obstructive lung disease Father Dementia Sibling Chronic obstructive lung disease Schizophrenia Bipolar disorder Hypertension Sibling Hypertension <Stefanie Brito PA-C - Last Filed: 09/29/24 17:33> Social History Social History: Social History Social History: Surrogate decision maker: Jason Guevara, walker. Code status: Full code. Smoking packs per day: 3 Smoking cigarettes per day: 60.0 Years smoked: 15 Smoking pack-years: 45.00 Smoking status: Former smoker Smoking end date: 10/01/09 Additional smoking assessment comments: Occasionally vapes. Alcohol intake: current Drinks per week: 28 Alcohol use details: 3 to 4 glasses of wine a night. Substance use: current Substance use type: marijuana Lack of Transportation: YES Lack of Food: Sometimes True Current Housing: I Have Housing Concerned About Future Housing: YES Difficulty Paying Gas/Electric Bills: YES Difficulty Paying for Meds: YES Currently Unemployed: No Education: High School Diploma/GED Difficulty w/ Childcare or Family Care: Decline to Answer Living arrangements: alone Additional living arrangements comments: Lives in her own home in [place]. Additional occupation/education comments: Unemployed. Gender identity (if verbalized by the patient): Female Spiritual care concerns: No <GRACY Jean Last Filed: 09/29/24 17:33> Exam Narrative: GENERAL: Well-appearing, well-nourished, and in no acute distress. HEAD: Normocephalic, atraumatic. There is a left-sided facial droop involving the forehead EYES: PERRLA and EOMI. ENT: Nares clear, no rhinorrhea or epistaxis. Mucous membranes moist. NECK: Supple. CHEST: Clear to auscultation. No respiratory distress. HEART: Regular rate and rhythm. No murmur heard. Normal peripheral pulses. ABDOMEN: Soft, nontender, nondistended, normal active bowel sounds. EXTREMITIES: Normal range of motion. No edema. SKIN: Warm, dry, no rash. NEURO: No focal deficits. Alert and oriented x3. Left-sided facial droop involving forehead PSYCH: Normal mood and affect. <Ced Cueto MD - Last Filed: 09/25/24 22:33> Course Vital Signs Vital signs: Vital Signs Temperature 97.9 F 09/25/24 16:21 Pulse Rate 90 09/25/24 16:21 Respiratory Rate 16 09/25/24 16:21 Blood Pressure 119/71 09/25/24 16:21 Pulse Oximetry 96 09/25/24 16:21 Oxygen Delivery Room Air 09/25/24 16:21 Temperature 97.9 F 09/25/24 16:21 Pulse Rate 90 09/25/24 18:44 Respiratory Rate 15 09/25/24 18:44 Blood Pressure 126/75 09/25/24 18:44 Pulse Oximetry 97 09/25/24 18:44 Oxygen Delivery Room Air 09/25/24 16:21 <Stefanie Brito PA-C - Last Filed: 09/29/24 17:33> Vital Signs Temperature 97.9 F 09/25/24 16:21 Pulse Rate 90 09/25/24 16:21 Respiratory Rate 16 09/25/24 16:21 Blood Pressure 119/71 09/25/24 16:21 Pulse Oximetry 96 09/25/24 16:21 Oxygen Delivery Room Air 09/25/24 16:21 Temperature 97.9 F 09/25/24 16:21 Pulse Rate 90 09/25/24 18:44 Respiratory Rate 15 09/25/24 18:44 Blood Pressure 126/75 12/26/24 18:44 Pulse Oximetry 97 09/25/24 18:44 Oxygen Delivery Room Air 09/25/24 16:21 <Ced Cueto MD - Last Filed: 09/25/24 22:33> MDM - Neuro Symptoms/Deficit MDM Narrative Medical decision making narrative: Differential diagnosis includes CVA, Duke's palsy, Patient's exam showed a facial palsy involving the forehead. 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 CT head showed no evidence of acute hemorrhage and no evidence of large stroke. The patient's last known well was 2 days ago the patient would not be a thrombolytics candidate The patient will be started on prednisone pulse and will do 60 mg of prednisone daily for 1 week patient also be given eye patch and will be instructed to ocular care <Ced Cueto MD - Last Filed: 09/25/24 22:33> Lab Data Result diagrams: 09/25/24 18:43 09/25/24 18:43 <Stefanie Brito PA-C - Last Filed: 09/29/24 17:33> Labs: Lab Results 09/25/24 09/25/24 09/25/24 Range/Units 16:23 18:42 18:43 WBC 7.0 (4.5-10.0) K/mm3 RBC 3.96 L (4.2-5.4) M/mm3 Hgb 11.0 L (12.0-15.0) g/dL Hct 33.9 L (37.0-47.0) % MCV 85.6 (80-100) fl MCH 27.8 (26-34) pg MCHC 32.4 (32-36) g/dl RDW 14.4 (11.5-14.5) % Plt Count 311 (150-375) k/mm3 MPV 7.8 (7.4-10.4) fl Immature Gran % (Auto) 1.1 H (0-0.5) % Neut % (Auto) 61.7 (45.5-73.1) % Lymph % (Auto) 18.9 (18.3-44.2) % Hubbard % (Auto) 12.2 H (2.6-8.5) % Eos % (Auto) 5.0 H (0-4.4) % Baso % (Auto) 1.1 (0.2-1.2) % Lymph # (Auto) 1.33 (0.9-3.2) K/mm3 Hubbard # (Auto) 0.9 H (0.1-0.6) K/mm3 Eos # (Auto) 0.4 H (0-0.3) K/mm3 Baso # (Auto) 0.1 (0.0-0.1) K/mm3 Abs Immat Gran (auto) 0.08 H (0.00-0.031) K/mm3 Absolute Neuts (auto) 4.3 (1.3-6.7) K/mm3 Absolute Nucleated RBC 0.000 (0.0-0.012) K/mm3 Nucleated RBC % 0.0 (0.0-0.2) % PT 13.9 (11.1-14.7) Seconds INR 1.0 APTT 30.5 (22.3-36.8) Seconds Sodium 124 L (137-145) mmol/L Potassium 3.8 (3.4-5.0) mmol/L Chloride 95 L (98-107) mmol/L Carbon Dioxide 22 (22-30) mmol/L Anion Gap 7 (4-12) mmol/L BUN 5 L D (7-17) mg/dL Creatinine 0.40 L (0.7-1.0) mg/dL Estim Creat Clear Calc 107 ml/min Estimated GFR > 60 (59 - ) Glucose 129 H (65-110) mg/dL POC Capillary Glucose 95 145 H (65-105) mg/dl Calcium 8.5 (8.4-10.2) mg/dL Total Bilirubin 0.5 (0.2-1.3) mg/dL AST 25 (14-36) U/L ALT 10 (6-35) U/L Alkaline Phosphatase 113 (38-126) U/L Troponin I < 0.012 (0.000-0.034) ng/mL Total Protein 7.0 (6.3-8.2) g/dL Albumin 3.9 (3.5-5.1) g/dL <Stefanie Brito PA-C - Last Filed: 09/29/24 17:33> Lab Results 09/25/24 09/25/24 09/25/24 Range/Units 16:23 18:42 18:43 WBC 7.0 (4.5-10.0) K/mm3 RBC 3.96 L (4.2-5.4) M/mm3 Hgb 11.0 L (12.0-15.0) g/dL Hct 33.9 L (37.0-47.0) % MCV 85.6 (80-100) fl MCH 27.8 (26-34) pg MCHC 32.4 (32-36) g/dl RDW 14.4 (11.5-14.5) % Plt Count 311 (150-375) k/mm3 MPV 7.8 (7.4-10.4) fl Immature Gran % (Auto) 1.1 H (0-0.5) % Neut % (Auto) 61.7 (45.5-73.1) % Lymph % (Auto) 18.9 (18.3-44.2) % Hubbard % (Auto) 12.2 H (2.6-8.5) % Eos % (Auto) 5.0 H (0-4.4) % Baso % (Auto) 1.1 (0.2-1.2) % Lymph # (Auto) 1.33 (0.9-3.2) K/mm3 Hubbard # (Auto) 0.9 H (0.1-0.6) K/mm3 Eos # (Auto) 0.4 H (0-0.3) K/mm3 Baso # (Auto) 0.1 (0.0-0.1) K/mm3 Abs Immat Gran (auto) 0.08 H (0.00-0.031) K/mm3 Absolute Neuts (auto) 4.3 (1.3-6.7) K/mm3 Absolute Nucleated RBC 0.000 (0.0-0.012) K/mm3 Nucleated RBC % 0.0 (0.0-0.2) % PT 13.9 (11.1-14.7) Seconds INR 1.0 APTT 30.5 (22.3-36.8) Seconds Sodium 124 L (137-145) mmol/L Potassium 3.8 (3.4-5.0) mmol/L Chloride 95 L (98-107) mmol/L Carbon Dioxide 22 (22-30) mmol/L Anion Gap 7 (4-12) mmol/L BUN 5 L D (7-17) mg/dL Creatinine 0.40 L (0.7-1.0) mg/dL Estim Creat Clear Calc 107 ml/min Estimated GFR > 60 (59 - ) Glucose 129 H (65-110) mg/dL POC Capillary Glucose 95 145 H (65-105) mg/dl Calcium 8.5 (8.4-10.2) mg/dL Total Bilirubin 0.5 (0.2-1.3) mg/dL AST 25 (14-36) U/L ALT 10 (6-35) U/L Alkaline Phosphatase 113 (38-126) U/L Troponin I < 0.012 (0.000-0.034) ng/mL Total Protein 7.0 (6.3-8.2) g/dL Albumin 3.9 (3.5-5.1) g/dL <Ced Cueto MD - Last Filed: 09/25/24 22:33> Imaging Data Radiologist's impression: ITS Impressions Head CT 09/25/24 16:51 IMPRESSION: No acute intracranial findings. Moderate Hydrocephalus with mild brain atrophy. Normal pressure hydrocephalus should be considered. <Stefanie Brito PA-C - Last Filed: 09/29/24 17:33> Critical Care Time Critical Care Time Critical Care Time: No <Stefanie Brito PA-C - Last Filed: 09/29/24 17:33> Discharge Plan Discharge Clinical Impression: Duke's palsy <Stefanie Brito PA-C - Last Filed: 09/29/24 17:33> Patient Disposition: Home, Self-Care <Stefanie Brito PA-C - Last Filed: 09/29/24 17:33> Condition: Stable <Stefanie Brito PA-C - Last Filed: 09/29/24 17:33> Instructions: Antibiotic Form, Duke Palsy (ED) <Stefanie Brito PA-C - Last Filed: 09/29/24 17:33> Patient Language: Lithuanian <Stefanie Brito PA-C - Last Filed: 09/29/24 17:33> Prescriptions: New prednisone 20 mg tablet 60 mg PO DAILY 7 Days Qty: 21 0RF artificial tears with lanolin Ointment 1 applic LEFT EYE QAM PRN (Reason: dry eyes) Qty: 3.5 0RF No Action albuterol sulfate 90 mcg/actuation HFA aerosol inhaler 1 inh inhalation QID PRN (Reason: shortness of breath or wheezing) Qty: 8.5 0RF mirtazapine 15 mg tablet 15 mg PO DAILY Vraylar 1.5 mg capsule 1.5 mg PO DAILY mirtazapine 7.5 mg tablet 7.5 mg PO DAILY Humira 40 mg/0.8 mL syringe kit 40 mg subcut ONCE omeprazole 40 mg capsule,delayed release(DR/EC) 40 mg PO DAILY cholecalciferol (vitamin D3) 25 mcg (1,000 unit) capsule 25 mcg PO DAILY prednisone 10 mg tablet 10 mg PO BID Qty: 20 0RF bupropion HCl 300 mg tablet extended release 24 hr 300 mg PO QAM clonazepam 0.5 mg tablet 1 mg PO BID PRN (Reason: Anxiety) fluticasone propionate 50 mcg/actuation spray,suspension 1 spray NASAL BID Rx Instructions: administer into each nostril gabapentin 400 mg capsule 400 mg PO TID hydrochlorothiazide 12.5 mg capsule 12.5 mg PO DAILY montelukast 10 mg tablet 10 mg PO DAILY sertraline 100 mg tablet 100 mg PO DAILY thiamine HCl (vitamin B1) 100 mg tablet 100 mg PO DAILY fluticasone propion-salmeterol [Wixela Inhub] 250-50 mcg/dose blister with device 1 inhalation INHALATION BID meloxicam 15 mg tablet 15 mg PO DAILY <Stefanie Brito PA-C - Last Filed: 09/29/24 17:33> Follow-up/Referrals: Courtney,ROSALINDA Camejo [Primary Care Provider] - <Stefanie Brito PA-C - Last Filed: 09/29/24 17:33> Time of Disposition: 22:32 <Stefanie Brito PA-C - Last Filed: 09/29/24 17:33> 22:32 <Ced Cueto MD - Last Filed: 09/25/24 22:33>
[2024-09-25 16:26] LABS: Glucose Point of Care 95 mg/dl (65-105)
[2024-09-25 18:44] VITALS: BP 126/75; PULSE 90; RESP 15; O2SAT 97
[2024-09-25 18:47] LABS: Glucose Point of Care 145 mg/dl (65-105)
[2024-09-25 18:50] LABS: Basophils Absolute Auto 0.1 K/mm3 (0.0-0.1); Basophils Percent Auto 1.1 % (0.2-1.2); Eosinophils Absolute Auto 0.4 K/mm3 (0-0.3); Hematocrit 33.9 % (37.0-47.0); Immature Granulocyte Absolute 0.08 K/mm3 (0.00-0.031); Immature Granulocyte Percent A 1.1 % (0-0.5); Lymphocytes Absolute Auto 1.33 K/mm3 (0.9-3.2); Lymphocytes Percent Auto 18.9 % (18.3-44.2); Mean Corpuscular HGB Conc 32.4 g/dl (32-36); Mean Corpuscular Hemoglobin 27.8 pg (26-34); Mean Corpuscular Volume 85.6 fl (80-100); Mean Platelet Volume 7.8 fl (7.4-10.4); Monocytes Absolute Auto 0.9 K/mm3 (0.1-0.6); Monocytes Percent Auto 12.2 % (2.6-8.5); Neutrophils Absolute Auto 4.3 K/mm3 (1.3-6.7); Neutrophils Percent Auto 61.7 % (45.5-73.1); Platelet Count Result 311 k/mm3 (150-375); Red Blood Count 3.96 M/mm3 (4.2-5.4); Red Cell Distribution Width 14.4 % (11.5-14.5)
[2024-09-25 19:00] LABS: Alanine Aminotransferase 10 U/L (6-35); Albumin Level 3.9 g/dL (3.5-5.1); Alkaline Phosphatase 113 U/L (38-126); Anion Gap 7 mmol/L (4-12); Aspartate Amino Transferase 25 U/L (14-36); Bilirubin,Total 0.5 mg/dL (0.2-1.3); Blood Urea Nitrogen 5 mg/dL (7-17); Calcium 8.5 mg/dL (8.4-10.2); Carbon Dioxide 22 mmol/L (22-30); Chloride 95 mmol/L (98-107); Estimated CRCL calculation 107 ml/min; Estimated Glomerular Filt Rate > 60; Glucose 129 mg/dL (65-110); Potassium 3.8 mmol/L (3.4-5.0); Sodium 124 mmol/L (137-145)
[2024-09-25 19:11] LABS: Troponin I < 0.012 ng/mL (0.000-0.034)
[2024-09-25 19:25] LABS: Prothrombin Time 13.9 Seconds (11.1-14.7)
[2024-09-25 19:26] LABS: Partial Thromboplastin Time 30.5 Seconds (22.3-36.8)
[2024-09-25] MEDS: predniSONE 20 MG TABLET 60 MG PO (22:50)
[2024-09-25] MEDS: MINERAL OIL/WHITE PETROLATUM OINTMENT 1 APPLIC LEFT EYE (22:50)
== END 2024-09-25 23:17 | disposition home or self-care (01) ==
PROVIDERS: Physician Assistant; Emergency Provider Emergency Medicine; PCP Nurse Practitioner Family
DX: G51.0 Bell's palsy (principal); G91.9 Hydrocephalus, unspecified; M06.9 Rheumatoid arthritis, unspecified; I10 Essential (primary) hypertension; G60.9 Hereditary and idiopathic neuropathy, unspecified; G47.30 Sleep apnea, unspecified; J44.9 Chronic obstructive pulmonary disease, unspecified; E78.5 Hyperlipidemia, unspecified
CPT/HCPCS: 36415; 70450; 80053; 82948; 84484; 85025; 85610; 85730; 93005; 99284; J7512